=== PATIENT | female | born 1970 | race Caucasian/White ===

== ENCOUNTER → 2019-07-14 | Outpatient (CLI) | payer BC ==
--- NOTE | 2019-07-14 15:41 | Diagnostic Imaging Report ---
INDICATION: Right-sided pain, worsening in severity. FINDINGS: There is an elevated colonic fecal load without evidence for rectal impaction or jovanni bowel obstruction. There are clips at the gallbladder fossa. There are no suspicious radiodense stones. IMPRESSION: At least [id number] cha-colonic constipation without impaction or resultant obstruction. Dictated by: Dictated on workstation # [id number]
== END ==
LOC: RAD FS 11:45
PROVIDERS: ATTEND Nurse Practitioner Family
DX: K59.00 Constipation, unspecified (principal)
CPT/HCPCS: 74018

== ENCOUNTER → 2019-11-27 | Outpatient (CLI) | payer BC ==
--- NOTE | 2019-11-27 19:04 | Diagnostic Imaging Report ---
INDICATION: Neck pain with radiation down the right arm. COMPARISON: None FINDINGS: Frontal, lateral, and open-mouth views of the cervical spine were obtained. Cervical spine is seen down to C7-T1 level on the lateral view. Static alignment shows slight reversal of normal lordotic curvature epicentered at the C5 level. There is no significant anteroretrolisthesis. There is no evidence of jumped facets. Open-mouth view shows normal C1-C2 relationship. Vertebral body heights are maintained. There is no acute fracture. Prevertebral soft tissues are within normal limits. IMPRESSION: 1. Unremarkable cervical spine exam as above. Dictated by: Dictated on workstation # [id number]
== END ==
LOC: RAD FS 16:04
PROVIDERS: ATTEND Nurse Practitioner Family
DX: M79.2 Neuralgia and neuritis, unspecified (principal); M54.2 Cervicalgia
CPT/HCPCS: 72040

== ENCOUNTER 2020-01-08 05:45 | Outpatient (RCR) | payer BC ==
[~2020-01-08] VITALS: Ht 170 cm; Wt 77.2 kg
[2020-01-08] MEDS ORDERED: SUMA100T2 PO (13:07)
[2020-01-08] MEDS ORDERED: IRON1TAB89 PO (13:07)
[2020-01-08] MEDS ORDERED: LISI40TA PO (13:07)
[2020-01-08] MEDS ORDERED: DIPH25CA79 PO (13:07)
[2020-01-08] MEDS ORDERED: ROPI0.253 PO (13:07)
[2020-01-08] MEDS ORDERED: ALPR1TAB7 PO (13:07)
[2020-01-08] MEDS ORDERED: CETI10TA17 PO (13:07)
[2020-01-08] MEDS ORDERED: PANT40TA3 PO (13:07)
[2020-01-08] MEDS ORDERED: META800T PO (13:07)
[2020-01-08] MEDS ORDERED: GABA300C PO (13:07)
[2020-01-08] MEDS ORDERED: METO50TA15 PO (13:07)
[2020-01-13] MEDS ORDERED: DCS100C PO (05:55)
[2020-01-13] MEDS ORDERED: OXYC1TAB87 PO (05:55)
[2020-01-13] MEDS ORDERED: IBUP-1780 PO (05:55)
[2020-01-13] MEDS ORDERED: METR-145 PO (06:06)
== END 2020-01-08 13:23 | disposition home or self-care (01) ==
LOC: PREOP 05:45
PROVIDERS: ATTEND Obstetrics & Gynecology
DX: Z01.818 Encounter for other preprocedural examination (principal)

== ENCOUNTER 2020-01-11 06:57 | Inpatient (IN) | payer BC ==
[2020-01-11] VITALS (12 sets, daily range): BP systolic 110–146; BP diastolic 51–81
[~2020-01-11] VITALS: Ht 170 cm; Wt 77.2 kg
[~2020-01-11 06:57] MED LIST: ALPR1TAB7 PO; CETI10TA17 PO; DIPH25CA79 PO; GABA300C PO; IRON1TAB89 PO; LISI40TA PO; META800T PO; METO50TA15 PO; PANT40TA3 PO; ROPI0.253 PO; SUMA100T2 PO
--- OUTSIDE RECORDS SUMMARY | 2020-01-11 07:01 | XMS REPORT ---
Author Author Patricia ADHIKARI Organization [facility] Address [address] [place] [address] Care Team Providers Care Crm Technical Lead Name Role Phone GAGE ADHIKARI Unavailable PROBLEMS Type Condition ICD9-CM Code FAI03-KT Code Onset Dates Condition S tatus SNOMED Code Problem Primary hypertension I10 Active [id number] ALLERGIES No Information ENCOUNTERS Encounter Location Date Diagnosis [address] [address] Aug, [address] [address] Aug, Rash and nonspecific skin eruption R21 a nd Primary hypertension I10 IMMUNIZATIONS No Known Immunizations SOCIAL HISTORY Never Assessed REASON FOR VISIT medical history update PLAN OF CARE VITAL SIGNS MEDICATIONS Unknown Medications RESULTS No Results PROCEDURES No Known procedures INSTRUCTIONS MEDICATIONS ADMINISTERED No Known Medications MEDICAL (GENERAL) HISTORY Type Description Date Medical History allergic rhinitis due to other allergen Medical History abdominal pain, generalized Medical History reactive htn Medical History protein deficiency Medical History stress Medical History edema Medical History palpitation Medical History chronic fatigue Medical History pyelonephritis Medical History cystitis with hematuria Surgical History gallbladder Surgical History ganglion cyst removal Surgical History oral surgery Hospitalization History x2 Hospitalization History pneumonia Hospitalization History liver enzymes elevated
--- OUTSIDE RECORDS SUMMARY | 2020-01-11 07:01 | XMS REPORT ---
Author Author Patricia Mclaughlin Organization [facility] Address [address] [place] [address] Care Team Providers Care Chimney Construction Supervisor Name Role Phone GAGE Mclaughlin Unavailable PROBLEMS Type Condition ICD9-CM Code UAM72-TW Code Onset Dates Condition S tatus SNOMED Code Problem Palpitation R00.2 Apr, Active 62175 002 Problem Stress F43.9 Jun, Active 1827764 0 Problem Edema R60.9 Jun, Active 9273404 2 Problem Chronic fatigue R53.82 Apr, Active 5 3845966 Problem Abdominal pain, generalized R10.84 02 Feb, 2011 Active 253061552 Problem Well woman exam with routine gynecological exam Z01.419 Mar, Active 118875109391138 Problem Allergic rhinitis due to other allergen J30.89 Active 21834941 Problem Protein deficiency E46 Jun, Active 542415289 Problem Reactive hypertension I10 Apr, Activ e 94652312 Problem Anxiety F41.9 Active 72451200 Problem Cystitis with hematuria N30.91 May, Act elsie 57925457 Problem RLS (restless legs syndrome) G25.81 A ctive 66854473 Problem Pyelonephritis N12 May, Active 45 389368 Problem Primary hypertension I10 Active 85231357 Problem Essential hypertension I10 Active 71004413 Problem History of anemia Z86.2 Active 27 2762488 Problem Sinusitis, unspecified chronicity, unspecified location J32.9 Active 93445076 ALLERGIES No Information ENCOUNTERS Encounter Location Date Diagnosis [facility] [address] [place] [address] 02 Sep, [address] [id number] [place] [address] Aug, Anxiety F41.[address] [id number] [place] [address] Aug, Anxiety F41.9 [facility] [address] [id number] [place] [address] Jul, [facility] [address] [id number] [place] [address] Jul, Anxiety F41.9 [facility] [address] [id number] [place] [address] Jun, [facility] [address] [id number] [place] [address] Jun, [facility] [address] [id number] [place] [address] Jun, [facility] [address] [id number] [place] [address] Jun, Right sided abdominal pain R 10.9 [facility] [address] [id number] [place] [address] Jun, Acute recurrent pansinusitis J01.41 ; Right flank pain R10.9 ; Right sided abdominal pain R10.9 and RLS (restless legs syndrome) G25.81 [facility] [address] [id number] [place] [address] May, Anxiety F41.9 [facility] [address] [id number] [place] [address] Apr, Anxiety F41.9 [facility] [address] [id number] [place] [address] Mar, Anxiety F41.9 [facility] [address] [id number] [place] [address] Feb, Anxiety F41.9 [facility] [address] [id number] [place] [address] Jan, Anxiety F41.9 [facility] [address] [id number] [place] [address] Dec, Urinary frequency R35.0 [facility] [address] [id number] [place] [address] Dec, [facility] [address] [id number] [place] [address] Dec, Urinary frequency R35.0 [facility] [address] [id number] [place] [address] Dec, Essential hypertension I10 ; Sinusitis, unspecified chronicity, unspecified location J32.9 ; Anxiety F41.9 ; RLS (restless legs syndrome) G25.81 ; Medication monitoring encounter Z51.81 and Urinary frequency R35.0 [facility] [address] [id number] [place] [address] Dec, Anxiety F41.9 [facility] [address] [id number] [place] [address] Nov, [facility] [address] [id number] [place] [address] Nov, Anxiety F41.9 [facility] [address] [id number] [place] [address] October, Acute nasopharyngitis J00 [facility] [address] [id number] [place] [address] October, Essential hypertension I10 ; Muscle ache M79.10 ; Sinusitis, unspecified chronicity, unspecified location J32.9 ; History of migraine Z86.69 ; Anxiety F41.9 and History of anemia Z86.2 [facility] [address] [id number] [place] [address] October, Neck pain on right side M54. 2 [facility] [address] [id number] [place] [address] Sep, [facility] [address] [id number] [place] [address] Sep, [facility] [place] [facility] [address] [facility] [address] [id number] [place] [address] Aug, [facility] [place] [facility] [address] [facility] 340[address] [id number] [place] [address] Aug, Rash and nonspecific skin er uption R21 and Primary hypertension I10 [facility] [address] [facility] [id number] [address] [place] [address] Jun, [facility] [address] [facility] [id number] [address] [place] [address] May, [facility] [address] [facility] [id number] [address] [place] [address] May, IMMUNIZATIONS No Known Immunizations SOCIAL HISTORY Never Assessed REASON FOR VISIT DENIED XANAX PLAN OF CARE VITAL SIGNS MEDICATIONS Medication Instructions Dosage Frequency Start Date End Date Duration S tatus Alprazolam 1 MG Orally three times daily as needed 1/2 - 1 tablet 28 days Active RESULTS No Results PROCEDURES No Known procedures [...] Surgical History gallbladder Surgical History ganglion cyst removal, left wrist Surgical History oral surgery Hospitalization History x2 Hospitalization History pneumonia Hospitalization History liver enzymes elevated
--- OUTSIDE RECORDS SUMMARY | 2020-01-11 07:01 | XMS REPORT | Continuity of Care Document ---
Author Organization Unknown Address Unknown Phone Unavailable Allergies Active Description Code Type Severity Reaction Onset Reported/Identified Relationship to Patient Clinical Status Yes No Known Drug Allergies [id number] Drug Allergy Unknown N/A 01/08/2020 Medications There is no data. Problems Date Dx Coded Attending Type Code Diagnosis Diagnosed By 07/15/2019 SALOMON MEDEIROSANDA S PIPING DESIGN SPECIALIST Ot K59.00 CONSTIPATION, UNSPECIFIED 08/04/2019 WALDEMAR, SHAHLA S PIPING DESIGN SPECIALIST Ot K59.00 CONSTIPATION, UNSPECIFIED 11/27/2019 WALDEMAR, SHAHLA S PIPING DESIGN SPECIALIST Ot K59.00 CONSTIPATION, UNSPECIFIED 12/03/2019 WALDEMAR, SHAHLA S PIPING DESIGN SPECIALIST Ot M54.2 CERVICALGIA 12/03/2019 WALDEMAR, SHAHLA S PIPING DESIGN SPECIALIST Ot M79.2 NEURALGIA AND NEURITIS, UNSPECIFIED Procedures There is no data. Results Test Result Range - 09 PANEL (PROFILE 1) - 01/08/19 14 :25 Prescribed Drug 1 Alprazolam NRG Creatinine 58.2 mg/dL > or = 20.0 pH 5.98 4.5 - 9.0 Oxidant NEGATIVE mcg/mL <200 Amphetamines NEGATIVE ng/mL <500 medMATCH Amphetamines CONSISTENT NRG Benzodiazepines POSITIVE ng/mL <100 Marijuana Metabolite NEGATIVE ng/mL <20 medMATCH Marijuana Metab CONSISTENT NRG Cocaine Metabolite NEGATIVE ng/mL <150 medMATCH Cocaine Metab CONSISTENT NRG Opiates NEGATIVE ng/mL <100 medMATCH Opiates CONSISTENT NRG Oxycodone NEGATIVE ng/mL <100 medMATCH Oxycodone CONSISTENT NRG COMMENT NRG Alphahydroxyalprazolam 385 ng/mL <25 medMATCH aOH alprazolam CONSISTENT NRG Alphahydroxymidazolam NEGATIVE ng/mL < 50 medMATCH aOH midazolam CONSISTENT NRG Alphahydroxytriazolam NEGATIVE ng/mL < 50 medMATCH aOH triazolam CONSISTENT NRG Aminoclonazepam NEGATIVE ng/mL <25 medMATCH Aminoclonazepam CONSISTENT NRG Hydroxyethylflurazepam NEGATIVE ng/mL <50 medMATCH OH,Et flurazepam CONSISTENT NR G Lorazepam NEGATIVE ng/mL <50 medMATCH Lorazepam CONSISTENT NRG Nordiazepam NEGATIVE ng/mL <50 medMATCH Nordiazepam CONSISTENT NRG Oxazepam NEGATIVE ng/mL <50 medMATCH Oxazepam CONSISTENT NRG Temazepam NEGATIVE ng/mL <50 medMATCH Temazepam CONSISTENT NRG Barbiturates NEGATIVE ng/mL <300 medMATCH Barbiturates CONSISTENT NRG Methadone Metabolite NEGATIVE ng/mL <100 medMATCH Methadone Metab CONSISTENT NRG Phencyclidine NEGATIVE ng/mL <25 medMATCH Phencyclidine CONSISTENT NRG CULTURE, URINE - 01/12/19 16:25 CULTURE, URINE, ROUTINE SEE NOTE NRG CULTURE, URINE - 07/06/19 11:33 CULTURE, URINE, ROUTINE SEE NOTE NRG HEMOGLOBIN + HEMATOCRIT - 12/30/19 16:46 HEMOGLOBIN 9.5 g/dL 11.7-15.5 HEMATOCRIT 31.9 % 35.0-45.0 PATHOLOGY REPORT (TISSUE PAHOLOGY) - 02/10 16:54 A SOURCE NRG A GROSS DESCRIPTION NRG A DIAGNOSIS NRG CLINICAL INFORMATION NRG PATHOLOGIST NR SUREPATH PAP RFX HPV mRNA E6/E7 - 16:54 CLINICAL INFORMATION: NRG LMP: NRG PREV. PAP: NRG PREV. BX: NRG SOURCE: NRG STATEMENT OF ADEQUACY: NR INTERPRETATION/RESULT: NR FOURDRINIER TENDER: SHARON COMMENT NR CBC - 01/07/20 14:01 WHITE BLOOD CELL COUNT 12.8 Thousand/uL 3.8-10.8 RED BLOOD CELL COUNT 4.36 Million/uL 3.8 0-5.10 HEMOGLOBIN 9.5 g/dL 11.7-15.5 HEMATOCRIT 32.0 % 35.0-45.0 MCV 73.4 fL 80.0-100.0 MCH 21.8 pg 27.0-33.0 MCHC 29.7 g/dL 32.0-36.0 RDW 20.1 % 11.0-15.0 PLATELET COUNT 374 Thousand/uL 140-400 MPV 11.5 fL 7.5-12.5 ABSOLUTE NEUTROPHILS 8909 cells/uL 1500- 7800 ABSOLUTE LYMPHOCYTES 2560 cells/uL 850-3 900 ABSOLUTE MONOCYTES 1139 cells/uL 200-950 ABSOLUTE EOSINOPHILS 128 cells/uL 15-500 ABSOLUTE BASOPHILS 64 cells/uL 0-200 NEUTROPHILS 69.6 % NRG LYMPHOCYTES 20.0 % NRG MONOCYTES 8.9 % NRG EOSINOPHILS 1.0 % NRG BASOPHILS 0.5 % NRG Encounters ACCT No. Visit Date/Time Discharge Status Pt. Type Provider Facility Loc./Unit Complaint [id number] 01/06/2020 10:00:00 01/06/2020 23:59: 59 CLS Outpatient SHAHLA MEDEIROS [facility] [id number] 01/07/2020 13:00:00 Document Registration [id number] 12/30/2019 16:15:00 Document Registration [id number] 07/06/2019 10:20:00 Document Registration [id number] 01/12/2019 16:20:00 Document Registration [id number] 01/08/2019 13:20:00 Document Registration [id number] 01/08/2020 05:45:00 13:23:00 DIS Outpatient MANOLO RIVERA DO [facility] PREOP MENOMENORRHAGIA, ACUTE BLOOD LOSS ANEMIA [id number] 11/27/2019 16:04:00 23:59:59 CLS Outpatient SHAHLA MEDEIROS PIPING DESIGN SPECIALIST [facility] RAD FS RADICULAR PAIN IN ARM,C ERVICAL PAIN [id number] 07/14/2019 11:45:00 23:59:59 CLS Outpatient SHAHLA MEDEIROS PIPING DESIGN SPECIALIST [facility] RAD FS R10.9 [id number] 01/11/2020 09:15:00 P EN Preadmit MANOLO RIVERA DO [facility] SDC MENOMENORRHAGIA, ACUTE BLOOD LOSS ANEMIA
--- OUTSIDE RECORDS SUMMARY | 2020-01-11 07:01 | XMS REPORT ---
Author Author Patricia ADHIKARI Organization [facility] Address [address] [place] [address] Care Team Providers Care Hot Head Machine Operator Name Role Phone GAGE ADHIKARI Unavailable PROBLEMS Type Condition ICD9-CM Code RAE11-BE Code Onset Dates Condition S tatus SNOMED Code Problem Primary hypertension I10 Active 10884300 ALLERGIES No Known Allergies ENCOUNTERS Encounter Location Date Diagnosis [address] [address] Aug, [address] [address] Aug, Rash and nonspecific skin eruption R21 a nd Primary hypertension I10 IMMUNIZATIONS Vaccine Route Administration Date Status DEXAMETHASONE 4MG/ML (PER 1 MG) IM Intramuscular August 26, 2018 Administered DEPO MEDROL 40 MG/ML IM Intramuscular August 26, 2018 Administer ed SOCIAL HISTORY Never Assessed REASON FOR VISIT Rash, everywhere, started a few weeks ago, started getting worse last night, in pain, itching, redness,, lower right leg brownish/red spot & left knee yoltete VO PLAN OF CARE Activity Details Follow Up 3 Months Reason: VITAL SIGNS Height 68 in 2018-08-26 Weight 182 lbs 2018-08-26 Temperature 98.1 degrees Fahrenheit 2018-08-26 BMI 27.67 kg/m2 2018-08-26 Blood pressure systolic 164 mmHg 2018-08-26 Blood pressure diastolic 92 mmHg 2018-08-26 MEDICATIONS Medication Instructions Dosage Frequency Start Date End Date Duration S tatus Cetirizine HCl 10 MG Orally Once a day 1 tablet 24h 30 day(s) Active Zofran ODT Active Tramadol HCl 50 MG Orally every 6 hours as needed. take 1 tablet Active Aspirin 81 MG Orally Once a day 1 tablet 24h 30 day( s) Active Clonidine HCl 0.1 MG Orally three times daily as needed for bp 1 table t 30 day(s) Active Lexapro 10 MG Orally Once a day 1 tablet 24h 30 day( s) Active Gabapentin 300 MG Orally at HS 1 capsule 30 day( s) Active Metaxalone 800 MG Orally Three times a day 1 tablet 8h 30 day(s) Active Pantoprazole Sodium 40 MG Orally Once a day 1 tablet 24h 30 day(s) Active Alprazolam 1 MG Orally three times daily as needed 1/2 - 1 tablet Active Metoprolol Tartrate 50 MG Orally Twice a day 1 tablet with food 12h 30 day(s) Active Imitrex 100 MG Orally Twice a day 1 tablet as needed 12h Active DiphenhydrAMINE HCl 25 MG Orally every 6 hrs as needed 1 capsule as n eeded Active RESULTS No Results PROCEDURES Procedure Date Ordered Result Body Site DEXAMETHASONE 4MG/ML (PER 1 MG) August 26, 2018 THER/PROPH/DIAG INJ, SC/IM August 26, 2018 DEPO MEDROL 40 MG/ML August 26, 2018 INSTRUCTIONS MEDICATIONS ADMINISTERED No Known Medications MEDICAL [...]
[2020-01-11] MEDS: LACTATED RINGERS 1,000 ML IV PRN ×2 (07:18→12:34)
[2020-01-11] MEDS ORDERED: BUPIVACAINE 0.5% 30 ML (SENSORCAINE) VIAL ONE (07:30)
[2020-01-11] MEDS ORDERED: LIDOCAINE/EPI 2% 1:100,00 (XYLOCAINE) 20 ML VIAL ONE (07:30)
[2020-01-11] MEDS ORDERED: metroNIDAZOLE 500MG/100ML IVPB 100 ML IV ONE (07:30)
[2020-01-11] MEDS ORDERED: ceFAZolin 2 GM IV Premixed 50 ML IV ONE (07:30)
[2020-01-11] MEDS ORDERED: ESTROGENS CONJ. CREAM 30 GM (PREMARIN) TUBE ONE (07:30)
--- NOTE | 2020-01-11 07:31 | History & Physical-OB/GYN ---
History of Present Illness History of Present Illness Reason for visit/HPI Ms. Card is scheduled for surgery Laparoscopically-assisted Vaginal Hysterectomy possible Total Abdominal Hysterectomy secondary to heavy, prolonged, painful vaginal bleeding Date of Admission January 11, 2020 Date Seen by a Provider: Jan 11, 2020 Time Seen by a Provider: 07:20 I consulted on this patient on 01/11/20 07:25 Attending Physician Joe Bryant DO Admitting Physician Joe Bryant DO Consult Allergies and Home Medications Allergies Coded Allergies: No Known Drug Allergies (Unverified , 01/08/20) Home Medications Alprazolam 1 Mg Tablet, 1-1.5 MG PO TID, (Reported) Cetirizine HCl 10 Mg Tablet, 10 MG PO DAILY, (Reported) Diphenhydramine HCl 25 Mg Capsule, 25-50 MG PO PRN, (Reported) Gabapentin 300 Mg Capsule, 300 MG PO HS, (Reported) Iron,Carbonyl/Ascorbic Acid 1 Each Tablet, 1 EACH PO DAILY, (Reported) Lisinopril 40 Mg Tablet, 40 MG PO DAILY, (Reported) Metaxalone 800 Mg Tablet, 800 MG PO TID, (Reported) Metoprolol Tartrate 50 Mg Tablet, 50 MG PO BID, (Reported) Pantoprazole Sodium 40 Mg Tablet.dr, 40 MG PO DAILY, (Reported) Ropinirole HCl 0.25 Mg Tablet, 0.25 MG PO HS, (Reported) Sumatriptan Succinate 100 Mg Tablet, 100 MG PO PRN PRN for MIGRAINE, (Reported) Patient Home Medication List Home Medication List Reviewed: Yes Past Puhdpka-Sstwqi-Eacisi Hx Patient Social History Marrital Status: Number of Children: 2 Number of living children: 2 Employed/Student: employed Alcohol Use: Denies Use Recreational Drug Use: No Smoking Status: Never a Smoker 2nd Hand Smoke Exposure: No Recent Foreign Travel: No Contact w/other who traveled: No Recent Hopitalizations: No Seasonal Allergies Seasonal Allergies: Yes Surgeries Yes (GANGLION CYST, WISDOM TEETH) Gallbladder Respiratory Yes ( CHILD) Cardiovascular Yes Hypertension, Palpitations Neurological Yes Headaches /Migraines Reproductive System Sexually Transmitted Disease: No HIV/AIDS: No Female Reproductive Disorders: Menstrual Problems Genitourinary Yes UTI-Chronic Gastrointestinal Yes Gastroesophageal Reflux Musculoskeletal Yes Chronic Back Pain Endocrine History of Endocrine Disorders: No HEENT History of HEENT Disorders: Yes (GLASSES) Loss of Vision: Denies Hearing Impairment: Denies Cancer No Psychosocial History of Psychiatric Problem: Yes Behavioral Health Disorders: Anxiety Integumentary History of Skin or Integumenta: Yes (DRY SKIN) Blood Transfusions History of Blood Disorders: Yes (ANEMIA) Adverse Reaction to a Blood Tr: No (N/A) Review of Systems Constitutional: see HPI Physical Exam Physical Exam Vital Signs Capillary Refill : General Appearance: No Apparent Distress, WD/WN Respiratory: Chest Non Tender, Lungs Clear, Normal Breath Sounds Cardiovascular: Regular Rate, Rhythm, No Murmur Abdominal: normal bowel sounds, non tender, soft Labia: WNL Vagina: WNL Cervix: WNL Uterus: Enlarged Extremity: Normal Inspection, Non Tender, No Calf Tenderness Assessment/Plan Assessment and Plan Assessment: Chronic Blood Loss Anemia 2. Menometrorrhagia 3. Dysmenorrhea 4. Thickened Endometrium 5. Enlarged Uterus Plan: Ms. Card is scheduled for a Laparoscopically-assisted Vaginal Hysterectomy possible Total Abdominal Hysterectomy. The procedure and its associated risks were reviewed. All questions were answered. Admission Diagnosis Admission Status: Inpatient Order (span 2 midnights) Reason for Inpatient Admission: Scheduled surgery, Laparoscopically-assisted Vaginal Hysterectomy possible Total Abdominal Hysterecomy JOE BRYANT DO Jan 11, 2020 07:31
[2020-01-11 07:59] LABS: BASOPHILS % (AUTO) 0 % (0-10); EOSINOPHILS # (AUTO) 0.1 10^3/uL (0.0-0.3); EOSINOPHILS % (AUTO) 1 % (0-10); HEMATOCRIT 29 % (35-52); HEMOGLOBIN 8.7 G/DL (11.5-16.0); LYMPHOCYTES # (AUTO) 2.2 X 10^3 (1.0-4.0); LYMPHOCYTES % (AUTO) 25 % (12-44); MEAN CORPUSCULAR HEMOGLOBIN 23 PG (25-34); MEAN CORPUSCULAR HGB CONC 30 G/DL (32-36); MEAN CORPUSCULAR VOLUME 75 FL (80-99); MEAN PLATELET VOLUME 11.8 FL (7.4-10.4); MONOCYTES % (AUTO) 11 % (0-12); NEUTROPHILS # (AUTO) 5.3 X 10^3 (1.8-7.8); NEUTROPHILS % (AUTO) 62 % (42-75); PLATELET COUNT 302 10^3/uL (130-400); RED CELL DISTRIBUTION WIDTH 23.1 % (10.0-14.5); WHITE BLOOD COUNT 8.6 10^3/uL (4.3-11.0)
[2020-01-11] MEDS ORDERED: GLYCOPYRROLATE 0.2 MG/ML (ROBINUL) 2 ML VIAL ONE (08:59)
[2020-01-11] MEDS ORDERED: proPOfol 200 MG/20 ML (DIPRIVAN) VIAL IV ONE (08:59)
[2020-01-11] MEDS ORDERED: SEVOFLURANE (ULTANE) 15 ML INHAL SOLN ONE ×11 (08:59→11:53)
[2020-01-11] MEDS ORDERED: ONDANSETRON 4 MG/2 ML (SDV) Z0FRAN ONE ×2 (08:59→12:16)
[2020-01-11] MEDS ORDERED: DEXAMETHASONE 10 MG/ML (DECADRON) 1 ML VIAL ONE (08:59)
[2020-01-11] MEDS ORDERED: fentaNYL INJECTION 100 MCG/2 ML AMP ONE ×3 (08:59→13:45)
[2020-01-11] MEDS ORDERED: LACTATED RINGERS 1,000 ML IV ONE (08:59)
[2020-01-11] MEDS ORDERED: ROCURONIUM 10 MG/ML 5 ML SYRINGE IV ONE (08:59)
[2020-01-11] MEDS ORDERED: NEOSTIGMINE 3 MG/3 ML VIAL ONE (08:59)
[2020-01-11] MEDS ORDERED: MIDAZOLAM 2 MG/2 ML (VERSED) VIAL ONE (08:59)
[2020-01-11] MEDS ORDERED: LIDOCAINE PF 2% 5 ML (XYLOCAINE) VIAL ONE (08:59)
[2020-01-11] MEDS ORDERED: BENZOCAINE/MENTHOL (DERMOPLAST) 60 ML CAN TP PRN (11:45)
[2020-01-11] MEDS ORDERED: ONDANSETRON 4 MG/2 ML (SDV) Z0FRAN IVP PRN ×2 (11:45→12:15)
[2020-01-11] MEDS ORDERED: KETOROLAC 30 MG/ML VIAL IVP ONE (11:45)
[2020-01-11] MEDS ORDERED: KETOROLAC 30 MG/ML VIAL ONE (12:07)
--- NOTE | 2020-01-11 12:14 | Operative Report ---
Operative Report Date of Procedure/Surgery Jan 11, 2020 Surgeon (s) MANOLO RIVERA DO Sheet Metal Production Worker (s): None Post-Operative Diagnosis Acute Blood Loss Anemia 2. Menometrorrhagia 3. Dysmenorrhea 4. Thickened Endometrium 5. Enlarged Uterus 6. Bowel Injury Procedure Performed Supracervical Abdominal Hysterectomy 2. Bowel Injury Repair (Dr. Marquez) Description of Procedure Anesthesia Type: General Estimated blood loss (mL): 200 ml Specimen(s) collected/removed Uterus (no cervix) Packing: No packing Description of the Procedure Ms. Card was taken to the Operating Room with IV fluids running. Once in the OR general anesthesia was administered without difficulty. She was then placed in the dorsal lithotomy position, prepped and draped in the normal sterile fashion. A sponge stick was placed in the vagina as a way to manipulate the uterus. A Bates catheter was inserted and the bladder was drained. Gloves were changed and attention was turned to the abdomen. In the infraumbilical fold, in the midline, an area was injected with approximately 3 ml of local anesthesia. A stab incision with a scalpel was made. At this point a Verees needle was inserted through this same incision. The Normal Saline Hanging Drop test was negative. However, I could not get gas to flow through the Verees needle. Consequently, then Verees needle was irrigated and there was fecal matter noted along with the fluid. At this point, General Surgery (Dr. Marquez) was consulted intraoperatively (you can see Dr. Marquez's postoperative note--however, he made a vertical incision, once in the abdominal cavity he ran the entire bowel, located the rent and repaired it in a two-layer closure). Once the bowel was repaired, I started the hysterectomy. The bowel was packed away with moist laparotomy sponges. An O'Lino-O'Li was placed in the the uterus was grasped with a matt clamp. The round ligament was doubly clamped and cut. Suture ligatures of 0-Vicryl was placed. The bladder flap was pushed caudally once the contralateral round ligament was clamped and cut. The ovarian ligament and portion of the fallopian tubes bilaterally was clamped, cut and suture ligated bilaterally. The broad ligament was serially clamped, cut and suture ligated with 0-Vicryl. Once I was down to the neck of the cervix, the uterus was amputated--with removal of the uterus and leaving a small cervical stump. This was done secondary to poor visualization in the deep recesses of the pelvic cavity. The cervix stump was oversewn with 0-Vicryl in a running locked manner. Hemostasis was noted throughout the pelvic cavity. Copious amounts of irrigation was undertaken (3000 ml). All instruments and sponges were removed from the pelvic and abdominal cavities. The parietal peritoneum was closed with a 3-0 Vicryl. The fascia was closed with 0-Vicryl in a running fashion. The subcutaneous tissues were approximated with 3-0 Plain Gut. The skin was closed with 4-0 Monocryl in a running subcuticular manner. Sponge, instrument, and needle counts were correct x 3. Ms. Card was taken to the Recovery Room in good and stable condition where postoperative orders were written. Findings of the Procedure Dense adhesion of the bowel at umbilicus. An enlarged uterus. Normal appearing tubes and ovaries. Allergies and Home Medications Allergies Coded Allergies: No Known Drug Allergies (Unverified , 01/11/20) Home Medications Alprazolam 1 Mg Tablet, 1-1.5 MG PO TID, (Reported) Cetirizine HCl 10 Mg Tablet, 10 MG PO DAILY, (Reported) Diphenhydramine HCl 25 Mg Capsule, 25-50 MG PO PRN, (Reported) Gabapentin 300 Mg Capsule, 300 MG PO HS, (Reported) Iron,Carbonyl/Ascorbic Acid 1 Each Tablet, 1 EACH PO DAILY, (Reported) Lisinopril 40 Mg Tablet, 40 MG PO DAILY, (Reported) Metaxalone 800 Mg Tablet, 800 MG PO TID, (Reported) Metoprolol Tartrate 50 Mg Tablet, 50 MG PO BID, (Reported) Pantoprazole Sodium 40 Mg Tablet.dr, 40 MG PO DAILY, (Reported) Ropinirole HCl 0.25 Mg Tablet, 0.25 MG PO HS, (Reported) Sumatriptan Succinate 100 Mg Tablet, 100 MG PO PRN PRN for MIGRAINE, (Reported) Patient Home Medication List Home Medication List Reviewed: Yes MANOLO RIVERA DO Jan 11, 2020 12:14
[2020-01-11] MEDS ORDERED: HYDROmorphone 2 MG/ML VIAL (DILAUDID) IV ONE (12:15)
[2020-01-11] MEDS ORDERED: HYDROmorphone 2 MG/ML VIAL (DILAUDID) ONE (12:16)
[2020-01-11] MEDS: fentaNYL INJECTION 100 MCG/2 ML AMP IVP PRN ×3 (13:55→22:01)
[2020-01-11] MEDS ORDERED: LORazepam INJ 2 MG/ML (ATIVAN) VIAL IVP ONE (14:30)
[2020-01-11] MEDS: ONDANSETRON 4 MG (ZOFRAN) ORAL DISSOLVE TAB PO SCH ×2 (15:18→23:15)
[2020-01-11] MEDS: metroNIDAZOLE 500MG/100ML IVPB 100 ML IV SCH (15:27)
[2020-01-11] MEDS: METOCLOPRAMIDE 10 MG (REGLAN) TAB PO SCH ×2 (17:54→23:14)
[2020-01-11] MEDS: oxyCODONE/APAP 5/325MG (PERCOCET 5) TABLET PO SCH ×2 (17:55→22:46)
[2020-01-11] MEDS: LACTATED RINGERS 1,000 ML IV SCH (20:43)
[2020-01-11] MEDS ORDERED: rOPINIRole 0.25 MG (REQUIP) TAB PO PRN (21:00)
[2020-01-11] MEDS: IBUPROFEN 800 MG (MOTRIN) TAB PO SCH (21:59)
[2020-01-11] MEDS: ZOLPIDEM 5 MG (AMBIEN) TAB PO SCH (22:34)
--- NOTE | 2020-01-11 22:35 | NUR ---
PT TAKES XANAX AT HOME, ASK FOR XANAX AT THIS TIME, CALLED, NEW ORDER RECEIVED, SEE ORDER HISTORY Addendum: 01/12/20 at 0528 by JULIO GODINEZ RN PT TAKES XANAX AT HOME, ASK FOR XANAX AT THIS TIME, CALLED, THIS NURSE NOTIFIED HIM OF PT HOME XANAX DOSE. SAID TO HOLD HS DOSE OF AMBIEN. NEW ORDER RECEIVED FOR XANAX, SEE ORDER HISTORY.
[2020-01-11] MEDS ORDERED: ALPRAZolam 1 MG (XANAX) TAB PO PRN (22:45)
--- NOTE | 2020-01-11 23:00 | NUR ---
Assumed care of pt. Pt's in going home for the night. Pt has a lot of anxiety about being here by herself. Reassured her that we will take care of her. Meds and assessments done. Pt is calming down.
[2020-01-11] MEDS ORDERED: ALPRAZolam 0.5 MG (XANAX) TAB ONE (23:08)
[2020-01-12] VITALS (7 sets, daily range): BP systolic 121–152; BP diastolic 59–79
--- NOTE | 2020-01-12 02:44 | OPERATIVE REPORT ---
DATE OF SERVICE: 01/11/2020 Intraoperative consult requested by Dr. Bryant. INDICATIONS: The patient is a 49-year-old female undergoing a supracervical abdominal hysterectomy due to acute blood loss anemia, menometrorrhagia, dysmenorrhea, thickened endometrium and enlarged uterus. DESCRIPTION OF PROCEDURE: The patient was having laparoscopic procedure when the Veress needle was inserted through a stab incision, could not get gas flow through the Veress needle. It was irrigated and fecal matter returned. At this time, he asked that I come to further evaluate. A midline incision was made from the umbilical incision inferiorly down to the subcutaneous tissues and the abdomen was entered. Significant adhesion was extremely dense and the omentum that was significantly adherent to the umbilicus and it had to be bluntly and sharply taken down with Metzenbaum along with cautery. The transverse colon was in extreme close proximity to this area as well due to the adhesions of the omentum up to the umbilicus. Once this was freed, the incision to get better visualization was made in a more cephalad manner. The small bowel was ran all the way from the ligament of Treitz all the way to the ileocecal valve. This was ran twice not noting any small bowel injury. The colon was then ran from the cecum all the way up to the hepatic flexure along the transverse colon inferiorly down the descending colon and sigmoid evaluated. There were no initial bowel injury found. There was an adhesion up to the right upper quadrant, it was taken down with cautery as well and the colon was then mobilized. Again, the omentum was dissected off of the transverse colon and a small bowel injury was noted in the transverse colon. A 3-0 silk pop-off was then used to close the hole which did not have any significant gross contamination around it. This was closed in a double layer fashion and with the second tie, a piece of omentum was placed over it to also seal it. No other injury was identified on the small bowel or colon. At this time, the case was turned back over to Dr. Bryant for proceeding of his planned surgery. PROCEDURE: Exploratory laparotomy with repair of the transverse colon bowel injury. SURGEON: Deanna Marquez DO CRIME SCENE INVESTIGATOR: Joe Bryant DO ESTIMATED BLOOD LOSS: Minimal. COMPLICATIONS: None. Job ID: [id number] DocumentID: [id number] Dictated Date: 01/11/2020 17:58:30 Administrative Specialist Date: 01/12/2020 02:44:14 Dictated By: DEANNA MARQUEZ DO
--- NOTE | 2020-01-12 03:02 | NUR ---
Pt is sleeping soundly at this time. Did not wake for pain meds
[2020-01-12] MEDS: metroNIDAZOLE 500MG/100ML IVPB 100 ML IV SCH ×3 (03:16→12:35)
[2020-01-12] MEDS: oxyCODONE/APAP 5/325MG (PERCOCET 5) TABLET PO SCH ×8 (03:23→23:54)
[2020-01-12] MEDS: LACTATED RINGERS 1,000 ML IV SCH ×2 (04:00→04:29)
[2020-01-12] MEDS: fentaNYL INJECTION 100 MCG/2 ML AMP IVP PRN ×3 (04:35→09:34)
[2020-01-12] MEDS ORDERED: BISACODYL 10 MG SUPP (DULCOLAX) PR ONE (05:00)
[2020-01-12] MEDS ORDERED: MILK OF MAGNESIA 400 MG/5 ML 30 ML UDC PO ONE (05:00)
--- NOTE | 2020-01-12 05:30 | NUR ---
Bates removed, Suppository given. instructed pt to not get up to bathroom by herself. Dr nixon in room. Dressing removed per
[2020-01-12] MEDS: IBUPROFEN 800 MG (MOTRIN) TAB PO SCH ×4 (05:46→22:49)
[2020-01-12] MEDS: METOCLOPRAMIDE 10 MG (REGLAN) TAB PO SCH ×3 (06:00→12:35)
[2020-01-12 06:16] LABS: BASOPHILS % (AUTO) 0 % (0-10); EOSINOPHILS % (AUTO) 0 % (0-10); HEMATOCRIT 27 % (35-52); LYMPHOCYTES # (AUTO) 1.3 X 10^3 (1.0-4.0); LYMPHOCYTES % (AUTO) 10 % (12-44); MEAN CORPUSCULAR HEMOGLOBIN 23 PG (25-34); MEAN CORPUSCULAR HGB CONC 30 G/DL (32-36); MEAN CORPUSCULAR VOLUME 75 FL (80-99); MEAN PLATELET VOLUME 11.2 FL (7.4-10.4); MONOCYTES # (AUTO) 0.9 X 10^3 (0.0-1.0); MONOCYTES % (AUTO) 7 % (0-12); NEUTROPHILS # (AUTO) 10.6 X 10^3 (1.8-7.8); NEUTROPHILS % (AUTO) 83 % (42-75); PLATELET COUNT 258 10^3/uL (130-400); RED CELL DISTRIBUTION WIDTH 24.1 % (10.0-14.5); WHITE BLOOD COUNT 12.8 10^3/uL (4.3-11.0)
--- NOTE | 2020-01-12 06:25 | Progress Note ---
Standard Progress Note Progress Notes/Assess & Plan Date Seen by a Provider: Jan 12, 2020 Time Seen by a Provider: 06:10 Progress/Assessment & Plan Subjective: Ms. Card is POD#1 from a Supracervical Abdominal Hysterectomy and Bowel Injury Repair. She admits to being sore, but no other complaints today. She does admit that her Bates Catheter is bothering her. Objective: Vital signs stable Heart: Regular rate and rhythm with +2 IVIS Lungs: Clear to auscultation bilaterally with good respiratory effort Abdomen: Decreased bowel sounds, moderately tender on palpation, incision is clean, dry and well approximated, no rebound or guarding Extremities: No cyanosis, clubbing or edema Neurological: Alert and oriented, cooperative, no apparent distress Assessment: Postoperative Day #1 Supracervical Hysterectomy and Bowel Repair Plan: Control pain with oral medications. Increase bowel function, then advance diet. Ambulate. Shower. Discontinue Bates Catheter and IV. MANOLO RIVERA DO Jan 12, 2020 06:25
--- NOTE | 2020-01-12 06:41 | Anesthesia-General Post-Op ---
General Patient Condition Mental Status/LOC: Same as Preop Cardiovascular: Satisfactory Nausea/Vomiting: Absent Respiratory: Satisfactory Pain: Controlled Complications: Absent Post Op Complications Complications None Follow Up Care/Instructions Patient Instructions None needed. Anesthesia/Patient Condition Patient Condition Patient is doing well, no complaints, stable vital signs, no apparent adverse anesthesia problems. No complications reported per nursing. OLIVIER TRIPATHI CRNA Jan 12, 2020 06:41
--- NOTE | 2020-01-12 07:37 | NUR ---
Report given to Jim TORRES
[2020-01-12] MEDS: ONDANSETRON 4 MG (ZOFRAN) ORAL DISSOLVE TAB PO SCH (07:57)
--- NOTE | 2020-01-12 09:44 | NUR ---
Notified Dr Bryant pt complaining of indigestion/nausea. Orders received. See AUG.
[2020-01-12] MEDS ORDERED: FAMOTIDINE 20MG/2ML IV (PEPCID) IVP NR (09:45)
[2020-01-12] MEDS ORDERED: PROCHLORPERAZINE 25 MG (COMPAZINE) SUPP PR NR (09:45)
--- NOTE | 2020-01-12 10:00 | NUR ---
pt refused compazine suppository.
--- OUTSIDE RECORDS SUMMARY | 2020-01-12 10:17 | XMS REPORT | Continuity of Care Document ---
Author Organization Unknown Address Unknown Phone Unavailable Allergies Active Description Code Type Severity Reaction Onset Reported/Identified Relationship to Patient Clinical Status Yes No Known Drug Allergies [id number] Drug Allergy Unknown N/A 01/11/2020 Medications There is no data. Problems Date Dx Coded Attending Type Code Diagnosis Diagnosed By 07/15/2019 SALOMON MEDEIROSANDA S COOK CHILI Ot K59.00 CONSTIPATION, UNSPECIFIED 08/04/2019 WALDEMAR, SHAHLA S COOK CHILI Ot K59.00 CONSTIPATION, UNSPECIFIED 11/27/2019 WALDEMAR, SHAHLA S COOK CHILI Ot K59.00 CONSTIPATION, UNSPECIFIED 12/03/2019 WALDEMAR, SHAHLA S COOK CHILI Ot M54.2 CERVICALGIA 12/03/2019 WALDEMAR, SHAHLA S COOK CHILI Ot M79.2 NEURALGIA AND NEURITIS, UNSPECIFIED Procedures [...] NRG STATEMENT OF ADEQUACY: NR INTERPRETATION/RESULT: NR PBX MECHANIC: SHARON COMMENT NR CBC - 01/07/20 14:01 [...] 1.0 % NRG BASOPHILS 0.5 % NRG Complete blood count (CBC) with automate d white blood cell (WBC) differential - 01/11/20 07:19 Blood leukocytes automated count (number/volume) 8.6 10*3/uL 4.3-11.0 Blood erythrocytes automated count (number/volume) 3.84 10*6/uL 4.35-5.85 Venous blood hemoglobin measurement (mass/volume) 8.7 g/dL 11.5-16.0 Blood hematocrit (volume fraction) 29 % 35-52 Automated erythrocyte mean corpuscular volume 75 [ foz_us] 80-99 Automated erythrocyte mean corpuscular h emoglobin (mass per erythrocyte) 23 pg 25-34 Automated erythrocyte mean corpuscular h emoglobin concentration measurement (mass/volume) 30 g/dL 32-36 Automated erythrocyte distribution width ratio 23. 1 % 10.0- 14.5 Automated blood platelet count (count/volume) 302 10*3/uL 130-400 Automated blood platelet mean volume measurement 11.8 [foz_us] 7.4-10.4 Automated blood neutrophils/100 leukocytes 62 % 42-75 Automated blood lymphocytes/100 leukocytes 25 % 12-44 Blood monocytes/100 leukocytes 11 % 0-12 Automated blood eosinophils/100 leukocytes 1 % 0-10 Automated blood basophils/100 leukocytes 0 % 0-10 Blood neutrophils automated count (number/volume) 5.3 10*3 1.8-7.8 Blood lymphocytes automated count (number/volume) 2.2 10*3 1.0-4.0 Blood monocytes automated count (number/volume) 1. 0 10*3 0.0-1.0 Automated eosinophil count 0.1 10*3/uL 0 .0-0.3 Automated blood basophil count (count/volume) 0.0 10*3/uL 0.0-0.1 Blood type T Indirect antibody screen pa humberto - 01/11/20 07:19 WRISTBAND NUMBER [id number] NRG ABO+Rh group AP NRG Blood group antibody screen NEGATIVE NR G Encounters ACCT No. Visit Date/Time Discharge Status Pt. Type Provider Facility Loc./Unit Complaint [id number] 01/06/2020 10:00:00 01/06/2020 23:59: 59 CLS Outpatient SHAHLA MEDEIROS [facility] [id number] 01/07/2020 13:00:00 Document Registration [id number] 12/30/2019 16:15:00 Document Registration [id number] 07/06/2019 10:20:00 Document Registration [id number] 01/12/2019 16:20:00 Document Registration [id number] 01/08/2019 13:20:00 Document Registration [id number] 01/08/2020 05:45:00 13:23:00 DIS Outpatient MANOLO RIVERA DO [facility] PREOP MENOMENORRHAGIA, ACUTE BLOOD LOSS ANEMIA [id number] 11/27/2019 16:04:00 23:59:59 CLS Outpatient SHAHLA MEDEIROS COOK CHILI [facility] RAD FS RADICULAR PAIN IN ARM, CERVICAL PAIN [id number] 07/14/2019 11:45:00 23:59:59 CLS Outpatient SHAHLA MEDEIROS COOK CHILI [facility] RAD FS R10.9 [id number] 01/11/2020 06:57:[address] Outpatient MANOLO RIVERA DO [facility] LDRP MENOMENORRHAGIA, ACUTE BLOOD LOSS ANEMIA
--- NOTE | 2020-01-12 10:30 | NUR ---
Pt had BM with out difficulty.
--- NOTE | 2020-01-12 10:45 | NUR ---
Pt resting no c/o or concerns voiced at this time.
[2020-01-12] MEDS: DOCUSATE SODIUM 100 MG (COLACE) CAP PO SCH ×2 (12:58→20:03)
--- NOTE | 2020-01-12 15:16 | NUR ---
Pt ambulating in [place] with without difficulty.
--- NOTE | 2020-01-12 16:00 | NUR ---
pt sitting up in chair.
[2020-01-12] MEDS: metroNIDAZOLE 500 MG (FLAGYL) TAB PO SCH (20:03)
[2020-01-12] MEDS: ZOLPIDEM 5 MG (AMBIEN) TAB PO SCH (21:26)
[2020-01-13] MEDS: IBUPROFEN 800 MG (MOTRIN) TAB PO SCH ×2 (01:22→08:21)
[2020-01-13] MEDS: oxyCODONE/APAP 5/325MG (PERCOCET 5) TABLET PO SCH ×2 (02:17→08:22)
[2020-01-13 03:47] VITALS: BP 145/65
[2020-01-13] MEDS ORDERED: IBUP-1780 PO (05:55)
[2020-01-13] MEDS ORDERED: DCS100C PO (05:55)
[2020-01-13] MEDS ORDERED: OXYC1TAB87 PO (05:55)
--- NOTE | 2020-01-13 06:04 | Discharge Summary ---
Diagnosis/Chief Complaint Date of Admission Jan 11, 2020 at 06:58 Date of Discharge January 13, 2020 Discharge Date: Jan 13, 2020 Discharge Time: 08:00 Admission Diagnosis Admission Diagnosis Chronic Blood Loss Anemia 2. Menometrorrhagia 3. Dysmenorrhea 4. Thickened Endometrium 5. Enlarged Uterus Discharge Diagnosis Chronic Blood Loss Anemia 2. Menometrorrhagia 3. Dysmenorrhea 4. Thickened Endometrium 5. Enlarged Uterus 6. Bowel Injury Reason Hospital Visit Ms. Card is scheduled for surgery Laparoscopically-assisted Vaginal Hysterectomy possible Total Abdominal Hysterectomy secondary to heavy, prolonged, painful vaginal bleeding Discharge Summary Hospital Course Was the Problem List Reviewed?: Yes Hospital Course Ms. Card is scheduled for surgery Laparoscopically-assisted Vaginal Hysterectomy possible Total Abdominal Hysterectomy secondary to heavy, prolonged, painful vaginal bleeding, Ms. Card was taken to the surgery and upon placing the Verees needle, I encountered problems. I removed the Verees n eedle, irrigated and noted fecal matter. At this point, General Surgery (Dr. Marquez) was consulted. The surgery was converted to an open case. Dr. Marquez located and repaired the bowel injury. I performed a supra-cervical hysterectomy. Postoperatively, she was was started on IV and oral pain medications along with other comfort care measures. Postoperative Day #1, Ms. Card was given medication to increase her bowel function, her Bates catheter was removed, she was encouraged to ambulate and she was started on oral pain medication. Postoperative Day #2 found Ms. Card ambulating, moving her bowels, voiding freely, ambulating, and tolerating a Regular Diet. Her vital signs remained stable throughout her hospitalization. The remainder of her hospitalization was unremarkable. She will be discharge to home with instructions, prescriptions, and a follow up appointment. Labs Laboratory Tests 01/11/20 07:19: Red Blood Count 3.84L, Hemoglobin 8.7L, Hematocrit 29L, Mean Corpuscular Volume 75L, Mean Corpuscular Hemoglobin 23L, Mean Corpuscular Hemoglobin Concent 30L, Red Cell Distribution Width 23.1H, Mean Platelet Volume 11.8H 01/11/20 09:27: 01/12/20 05:43: Red Blood Count 3.53L, Hemoglobin 8.0L, Hematocrit 27L, Mean Corpuscular Volume 75L, Mean Corpuscular Hemoglobin 23L, Mean Corpuscular Hemoglobin Concent 30L, Red Cell Distribution Width 24.1H, Mean Platelet Volume 11.2H, White Blood Count 12.8H, Neutrophils (%) (Auto) 83H, Lymphocytes (%) (Auto) 10L, Neutrophils # (Auto) 10.6H Procedures Supra-cervical abdominal hysterectomy and bowel injury repair Consultations General Surgery (Dr. Marquez) Discharge Physical Examination Allergies: Coded Allergies: No Known Drug Allergies (Unverified , 01/11/20) Vitals & I&Os Vital Signs Date Time Temp Pulse Resp B/P (MAP) Pulse Ox O2 Delivery O2 Flow Rate FiO2 01/13/20 03:47 36.6 102 16 145/65 (91) 92 Room Air 01/11/20 15:25 4.00 General Appearance: Alert, Oriented X3, Cooperative HEENT: Atraumatic Respiratory: Clear to Auscultation, Normal Air Movement Cardiovascular: Regular Rate Abdominal: Normal Bowel Sounds, Soft Extremities: No Clubbing, No Cyanosis Skin: No Rashes Neuro: Normal Gait, Normal Speech Psych/Mental Status: Mental Status NL Discharge Home Medications Reviewed and agree with Discharge Medication list on patient's Discharge Instruction sheet Instructions to Patient/Family Please see electronic discharge instructions given to patient. MANOLO RIVERA DO Jan 13, 2020 06:04
[2020-01-13] MEDS ORDERED: METR-145 PO (06:06)
[2020-01-13] MEDS: metroNIDAZOLE 500 MG (FLAGYL) TAB PO SCH (08:21)
[2020-01-13] MEDS: DOCUSATE SODIUM 100 MG (COLACE) CAP PO SCH (08:21)
[2020-01-13 09:30] VITALS: BP 140/67
--- NOTE | 2020-01-13 09:45 | NUR ---
JERRY FELIX demonstrates understanding of discharge instructions and accurately returns instructions upon questioning. Copy of Post-Discharge Instructions and Medication Discharge Instructions given to patient. JERRY FELIX is able to manage continuing needs after discharge. Patients belongings returned to patient. Skin dry and intact; no breakdown noted. [facility] 01[facility]13[facility]20 at 0945. JERRY FELIX left floor via w/c, accompanied by staff.
--- NOTE | 2020-01-15 10:50 | Physician Query Clarification ---
PQ-Conflicting Diagnosis Admission/Discharge Admission Date: Jan 11, 2020 at 06:58 Discharge Date: Jan 13, 2020 at 09:45 Dr. Bryant, The medical record reflects the following clinical scenario: History/Risk Factors: [list no more than 2] Clinical Findings: [list no more than 2] Treatment: [list no more than 2] Question: Do you agree with the impression of the [diagnosis/condition] per [consulting physician]. Please document a response in Progress Note or Discharge Summary. 1. Yes 2. No 3. Other, with explanation of clinical findings 4. Clinically undetermined, no explanation for clinical findings. Please remember a lack of response to the above will prompt a phone page by CDI/Coding staff. In responding to this query, please exercise your independent professional judgment. The purpose of this communication is to more accurately reflect the complexity of your patients condition. The fact that a question is asked does not imply that any particular answer is desired or expected. Thank you for your timely response to this clarification. Requestors name: [ ] Phone # [ ] THIS PHYSICIAN QUERY FORM IS A PERMANENT PART OF THE MEDICAL RECORD WILL BARROSO Jan 15, 2020 10:50
== END 2020-01-13 09:45 | disposition home or self-care (01) | DRG 983 ==
LOC: SDC 06:57 → LDRP 06:58
PROVIDERS: ADMIT Obstetrics & Gynecology; ATTEND Obstetrics & Gynecology
PROC: 0UT90ZL Resection of Uterus, Supracervical, Open Approach (ICD-10-PCS; 2020-01-11)
PROC: 0DQL0ZZ Repair Transverse Colon, Open Approach (ICD-10-PCS; principal; 2020-01-11 09:39)
DX: K91.71 Accidental puncture and laceration of a digestive system organ or structure during a digestive system procedure (principal); N92.1 Excessive and frequent menstruation with irregular cycle; N94.6 Dysmenorrhea, unspecified; N85.2 Hypertrophy of uterus; K66.0 Peritoneal adhesions (postprocedural) (postinfection); I10 Essential (primary) hypertension; K21.9 Gastro-esophageal reflux disease without esophagitis; R00.2 Palpitations; M54.9 Dorsalgia, unspecified; D50.0 Iron deficiency anemia secondary to blood loss (chronic)
CPT/HCPCS: 36415; 84703; 85025; 86850; 86900; 86901; 87081; 87635; 88307; 94664

== ENCOUNTER → 2020-09-06 | Outpatient (CLI) | payer BC ==
[~2020-09-06] MED LIST changes: +DCS100C PO; +IBUP-1780 PO; -LISI40TA PO; +LISI40TA9 PO; +METR-145 PO; +OXYC1TAB87 PO; -PANT40TA3 PO; +PANT40TA52 PO
--- NOTE | 2020-09-06 14:04 | Diagnostic Imaging Report ---
INDICATION: Acute right shoulder pain. COMPARISON: None available. TECHNIQUE: Two radiographs of the right shoulder dated 09/06/2020. FINDINGS: The acromioclavicular joint is unremarkable. No acute fracture or dislocation. No destructive osseous process. The visualized right lung is clear. No suspicious radiopaque foreign body. IMPRESSION: Unremarkable examination without acute osseous abnormality. Dictated by: Dictated on workstation # [id number]
== END ==
LOC: RAD FS 12:44
PROVIDERS: ATTEND Nurse Practitioner Family
DX: M25.511 Pain in right shoulder (principal)
CPT/HCPCS: 73030

== ENCOUNTER 2021-03-20 17:05 | Emergency (ER) | payer BC ==
[~2021-03-20] VITALS: Ht 170 cm; Wt 79.0 kg
[~2021-03-20 17:05] MED LIST changes: -DCS100C PO; +DOCU-239 PO
--- OUTSIDE RECORDS SUMMARY | 2021-03-20 17:09 | XMS REPORT | Clinical Summary ---
Author Author [facility] Organization [facility] Address Unknown Phone Unavailable Care Team Providers Care Senior Windows Systems Engineer Name Role Phone Brittany Navarro APRN PCP Allergies No Known Active Allergies Medications End Date Status Medication Sig Dispensed Refills Start Date Active cetirizine (ZYRTEC) 10 MG Take 10 mg by 0 tablet mouth daily. Active metaxalone (SKELAXIN) 800 Take 800 mg 0 MG tablet by mouth 3 (three) times a day. Active SUMAtriptan (IMITREX) 100 Take 100 mg 0 MG tablet by mouth as needed for migraine. After 2 hours, if symptoms persist, may repeat dose x 1. Max 2 doses in 24 hrs. Active ALPRAZolam (XANAX) 1 MG TAKE 1 2 TO 1 0 tablet (ONE HALF TO 1 ONE) TABLET BY MOUTH THREE TIMES DAILY NEEDED Active metoprolol tartrate TAKE 1 TABLET 0 (LOPRESSOR) 50 MG tablet BY MOUTH 1 TWICE DAILY WITH FOOD Active SUMAtriptan (IMITREX) 100 TAKE 1 TABLET 0 09/2 0/201 MG tablet BY MOUTH ONCE 8 DAILY DIRECTED Active traMADoL (ULTRAM) 50 mg TAKE 1 TABLET 0 tablet BY MOUTH ONCE 1 DAILY NEEDED FOR 28 DAYS Active rOPINIRole (REQUIP) 0.25 TAKE 1 TABLET 0 09/26 MG tablet BY MOUTH 1 TO 1 3 HOURS BEFORE BEDTIME ONCE DAILY Active pantoprazole (PROTONIX) TAKE 1 TABLET 0 40 MG tablet BY MOUTH ONCE 1 DAILY FOR 90 DAYS Active ondansetron (ZOFRAN-ODT) Take 4 mg by 0 02/19 4 MG disintegrating mouth every 6 8 tablet (six) hours as needed. Active lisinopriL Take 40 mg by 0 (PRINIVIL,ZESTRIL) 40 MG mouth daily. 1 tablet Active gabapentin (NEURONTIN) Take 300 mg 0 01 300 MG capsule by mouth. 8 Active Problems Not on file Family History Medical History Relation Name Comments Heart attack Father Stroke Mother Relation Name Status Comments Father Mother Social History Date Tobacco Use Types Packs/Day Years Used Never Smoker Smokeless Tobacco: Never Used Tobacco Cessation: Counseling Given: No Comments Alcohol Use Standard Drinks/Week occasional Yes 0 (1 standard drink = 0.6 o z pure alcohol) Sex Assigned at Date Recorded Not on file Last Filed Vital Signs Reading Time Taken Comments Vital Sign 118/72 10/03/2020 3:08 PM CDT Blood Pressure 69 10/03/2020 3:08 PM CDT Pulse 36.8 C (98.2 F) 10/03/2020 3:08 PM CDT Temperature - - Respiratory Rate - - Oxygen Saturation - - Inhaled Oxygen Concentration 80.7 kg (178 lb) 10/03/2020 3:08 PM CDT Weight 170.2 cm (5' 7") 10/03/2020 3:08 PM CDT Height 27.88 10/03/2020 3:08 PM CDT Body Mass Index Plan of Treatment Health Maintenance Due Date Last Done Comments Td/Tdap# 1970 Influenza Vaccine (#1) 2021 COVID-19 Vaccine Completed 08/08/2020, 07/21/2020 Pneumococcal Vaccine: Aged Out No longer raul bo based on patient's age to Pediatrics (0 to 5 Years) complete this topic and At-Risk Patients (6 to 64 Years) Results Not on filefrom Last 3 Months Insurance Type Payer Benefit Subscriber ID Effective Phone Address Plan / Dates Group BLUE [employer]UE [facility] [id number] [id number] [facility] 1 Patricia Card Personal/F Self 1970 [address] (Home) [place], [place] [address] Patricia Card Personal/F Self 1970 [address] (Home) [place], [place] [address] Advance Directives For more information, please contact: [phone] Patient Biomedical Engineer Explanation Type Date Recorded Advance Directives and Living Will Power of Plate Conditioner Health Care Directive
--- NOTE | 2021-03-20 17:42 | ED General ---
General Chief Complaint: Dizziness/Syncope Stated Complaint: FATIGUE,DIZZY,LOW BP Nursing Triage Note: ARRIVED VIA AMB TO ROOM 05. COMPLIANS OF LOW BP TODAY CAUSING HER TO FEEL WEAK AND DIZZY. PT STATES SHE HAD RECENT LABS DRAWN AND IS SCHEDULED TO GO BACK FOR REPEATS. History of Present Illness Date Seen by Provider: Mar 20, 2021 Time Seen by Provider: 17:30 Initial Comments 50-year-old female presents with low blood pressure and feeling lightheaded today. Patient normally has high blood pressure and is on a few blood pressure medications, recently added hydrochlorothiazide and her blood pressure has been well controlled. She typically is never low. Denies recent illness, fever chills, vomiting or diarrhea. She has had normal appetite and fluid intake. Allergies and Home Medications Allergies Coded Allergies: No Known Drug Allergies (Unverified , 01/11/20) Patient Home Medication List Home Medication List Reviewed: Yes Alprazolam (Alprazolam) 1 Mg Tablet, 1-1.5 MG PO TID, (Reported) Entered as Reported by: LUCIA BASS on 01/08/20 1307 Cetirizine HCl (Cetirizine HCl) 10 Mg Tablet, 10 MG PO DAILY, (Reported) Entered as Reported by: LUCIA BASS on 01/08/20 1307 Diphenhydramine HCl (Benadryl) 25 Mg Capsule, 25-50 MG PO PRN, (Reported) Entered as Reported by: LUCIA BASS on 01/08/20 1307 Docusate Sodium (Dok) 100 Mg Capsule, 100 MG PO BID Prescribed by: MANOLO RIVERA on 01/13/20 0555 Gabapentin (Neurontin) 300 Mg Capsule, 300 MG PO HS, (Reported) Entered as Reported by: LUCIA BASS on 01/08/20 1307 Ibuprofen (Ibuprofen) 800 Mg Tablet, 800 MG PO Q8HR Prescribed by: MANOLO RIVERA on 01/13/20 0555 Iron,Carbonyl/Ascorbic Acid (Iron 100-Vitamin C Tablet) 1 Each Tablet, 1 EACH PO DAILY, (Reported) Entered as Reported by: LUCIA BASS on 01/08/20 1307 Lisinopril (Lisinopril) 40 Mg Tablet, 40 MG PO DAILY, (Reported) Entered as Reported by: LUCIA BASS on 01/08/20 1307 Metaxalone (Metaxalone) 800 Mg Tablet, 800 MG PO TID, (Reported) Entered as Reported by: LUCIA BASS on 01/08/20 1307 Metoprolol Tartrate (Metoprolol Tartrate) 50 Mg Tablet, 50 MG PO BID, (Reported) Entered as Reported by: LUCIA BASS on 01/08/20 1307 Metronidazole (Metronidazole) 500 Mg Tablet, 500 MG PO TID Prescribed by: MANOLO RIVERA on 01/13/20 0606 Oxycodone HCl/Acetaminophen (Percocet 5-325 mg Tablet) 1 Each Tablet, 1 TAB PO Q4H Prescribed by: MANOLO RIVERA on 01/13/20 0555 Pantoprazole Sodium (Pantoprazole Sodium) 40 Mg Tablet.dr, 40 MG PO DAILY, (Reported) Entered as Reported by: LUCIA BASS on 01/08/20 1307 Ropinirole HCl (Ropinirole HCl) 0.25 Mg Tablet, 0.25 MG PO HS, (Reported) Entered as Reported by: LUCIA BASS on 01/08/20 130 Sumatriptan Succinate (Imitrex) 100 Mg Tablet, 100 MG PO PRN PRN for MIGRAINE, (Reported) Entered as Reported by: LUCIA BASS on 01/08/20 130 Review of Systems Review of Systems Constitutional: dizziness; No fever; malaise EENTM: no symptoms reported Respiratory: No dyspnea on exertion, No short of breath Cardiovascular: No chest pain, No edema, No palpitations, No syncope Gastrointestinal: No abdominal pain, No loss of appetite, No nausea, No vomiting Musculoskeletal: No back pain, No joint pain Skin: No change in color, No rash Psychiatric/Neurological: Denies Headache, Denies Numbness, Denies Paresthesia; Weakness Past Aztdmox-Pfqtwa-Euzvvu Hx Patient Social History Tobacco Use?: No Substance use?: No Alcohol Frequency: Once in a while Immunizations Up To Date Second COVID19 Vaccination Lukas: 08/14 COVID19 Vaccine Land[employer] Technician: ELIUD Seasonal Allergies Seasonal Allergies: Yes Past Medical History Surgeries: Yes (GANGLION CYST, WISDOM TEETH) Gallbladder Respiratory: Yes ( CHILD) Asthma Currently Using CPAP: No Currently Using BIPAP: No Cardiac: Yes Hypertension, Palpitations Neurological: Yes Headaches /Migraines Female Reproductive Disorders: Menstrual Problems Sexually Transmitted Disease: No HIV/AIDS: No Genitourinary: Yes UTI-Chronic Gastrointestinal: Yes Gastroesophageal Reflux Musculoskeletal: Yes Chronic Back Pain Endocrine: No HEENT: Yes (GLASSES) Loss of Vision: Denies Hearing Impairment: Denies Cancer: No Psychosocial: Yes Anxiety Integumentary: Yes (DRY SKIN) Blood Disorders: Yes (ANEMIA) Adverse Reaction/Blood Tranf: No (N/A) Physical Exam Vital Signs Vital Signs - First Documented 03/20/21 17:10 Temp 37.3 Pulse 62 Resp 16 B/P (MAP) 121/50 (73) Pulse Ox 100 O2 Delivery Room Air Capillary Refill : Less Than 3 Seconds Height, Weight, BMI Height: '" Weight: lbs. oz. kg; 27.00 BMI Method: General Appearance: No Apparent Distress, WD/WN HEENT: PERRL/EOMI, Normal ENT Inspection Neck: Non Tender, Supple Respiratory: Chest Non Tender, Lungs Clear, Normal Breath Sounds, No Accessory Muscle Use, No Respiratory Distress Cardiovascular: Regular Rate, Rhythm, No Edema, No Gallop, No JVD, No Murmur, Normal Peripheral Pulses Gastrointestinal: Non Tender, Soft Back: Normal Inspection, No CVA Tenderness Extremity: Normal Capillary Refill, Non Tender Neurologic/Psychiatric: Alert, Oriented x3, No Motor/Sensory Deficits, Normal Mood/Affect Skin: Normal Color, Warm/Dry Progress/Results/Core Measures Suspected Sepsis SIRS Temperature: Pulse: 62 Respiratory Rate: 16 Laboratory Tests 03/20/21 17:40: White Blood Count 9.8 Blood Pressure 121 /50 Mean: 73 Laboratory Tests 03/20/21 17:40: Creatinine 2.06H, Platelet Count 281, Total Bilirubin 0.3 Results/Orders Lab Results Laboratory Tests Test 03/20/21 17:40 03/20/21 18:15 Range/Units White Blood Count 9.8 4.3-11.0 10^3/uL Red Blood Count 4.72 3.80-5.11 10^6/uL Hemoglobin 12.8 11.5-16.0 g/dL Hematocrit 39 35-52 % Mean Corpuscular Volume 84 80-99 fL Mean Corpuscular Hemoglobin 27 25-34 pg Mean Corpuscular Hemoglobin Concent 33 32-36 g/dL Red Cell Distribution Width 15.1 H 10.0-14.5 % Platelet Count 281 130-400 10^3/uL Mean Platelet Volume 10.7 9.0-12.2 fL Immature Granulocyte % (Auto) 0 % Neutrophils (%) (Auto) 62 42-75 % Lymphocytes (%) (Auto) 28 12-44 % Monocytes (%) (Auto) 9 0-12 % Eosinophils (%) (Auto) 1 0-10 % Basophils (%) (Auto) 0 0-10 % Neutrophils # (Auto) 6.1 1.8-7.8 X 10^3 Lymphocytes # (Auto) 2.8 1.0-4.0 X 10^3 Monocytes # (Auto) 0.8 0.0-1.0 X 10^3 Eosinophils # (Auto) 0.1 0.0-0.3 10^3/uL Basophils # (Auto) 0.0 0.0-0.1 10^3/uL Immature Granulocyte # (Auto) 0.0 0.0-0.1 10^3/uL Sodium Level 136 135-145 MMOL/L Potassium Level 4.9 3.6-5.0 MMOL/L Chloride Level 100 98-107 MMOL/L Carbon Dioxide Level 22 21-32 MMOL/L Anion Gap 14 5-14 MMOL/L Blood Urea Nitrogen 29 H 7-18 MG/DL Creatinine 2.06 H 0.60-1.30 MG/DL Estimat Glomerular Filtration Rate 26 BUN/Creatinine Ratio 14 Glucose Level 89 70-105 MG/DL Calcium Level 9.3 8.5-10.1 MG/DL Corrected Calcium 8.5-10.1 MG/DL Magnesium Level 2.0 1.6-2.4 MG/DL Total Bilirubin 0.3 0.1-1.0 MG/DL Aspartate Amino Transf (AST/SGOT) 32 5-34 U/L Alanine Aminotransferase (ALT/SGPT) 46 0-55 U/L Alkaline Phosphatase 119 40-136 U/L Total Protein 7.6 6.4-8.2 GM/DL Albumin 4.6 H 3.2-4.5 GM/DL Urine Color YELLOW Urine Clarity SL CLOUDY Urine pH 5.5 5-9 Urine Specific [place] 1.010 L 1.016-1.022 Urine Protein NEGATIVE NEGATIVE Urine Glucose (UA) NEGATIVE NEGATIVE Urine Ketones NEGATIVE NEGATIVE Urine Nitrite NEGATIVE NEGATIVE Urine Bilirubin NEGATIVE NEGATIVE Urine Urobilinogen 0.2 < = 1.0 MG/DL Urine Leukocyte Esterase 2+ H NEGATIVE Urine RBC (Auto) TRACE-I NEGATIVE Urine RBC 2-5 H /HPF Urine WBC 50-100 H /HPF Urine Squamous Epithelial Cells 25-50 H /HPF Urine Crystals NONE /LPF Urine Bacteria TRACE /HPF Urine Casts NONE /LPF Urine Mucus NEGATIVE /LPF Urine Culture Indicated YES My Orders Orders - ROVENSTINENELA DO Ed Iv/Invasive Line Start (03/20/21 17:37) Cbc With Automated Diff (03/20/21 17:37) Comprehensive Metabolic Panel (03/20/21 17:37) Urinalysis (03/20/21 17:37) Magnesium (03/20/21 17:37) Ns Iv 1000 Ml (Sodium Chloride 0.9%) (03/20/21 17:45) Urine Culture (03/20/21 18:15) Ns Iv 1000 Ml (Sodium Chloride 0.9%) (03/20/21 20:00) Vital Signs/I&O 03/20/21 03/20/21 17:10 22:20 Temp 37.3 Pulse 62 82 Resp 16 18 B/P (MAP) 121/50 (73) 131/62 Pulse Ox 100 99 O2 Delivery Room Air Room Air 03/21/21 00:00 Intake Total 400 ml Balance 400 ml Capillary Refill : Less Than 3 Seconds Blood Pressure Mean: 73 Progress Note : Progress Note Patient was able to log onto her lab portal through the clinic and shared her values with me from Saturday Creatinine = 1.38 patient started on Chlorthalidone approx 2 weeks ago for HTN (in addition to her Lisinopril and Metoprolol) No prior Hx of renal dysfunction BP improved p IVF- 120's systolic now Departure Impression Primary Impression: ARF (acute renal failure) Qualified Codes: N17.9 - Acute kidney failure, unspecified Additional Impressions: Dehydration Hypotension Qualified Codes: I95.89 - Other hypotension; E86.1 - Hypovolemia Disposition: 02 XFER SHT-TRM HOSP ([facility]) Condition: Stable Transfer Transfer Reason: Exceeds level of care Time Spoke to Accepting Phy: 19:19 Transfer Progress Notes spoke to Kameron Mercado who accepts for Dr Vasquez Departure-Patient Inst. Referrals: [facility] (PCP) Primary Care Physician SHAHLA MEDEIROS APRN (Family) Primary Care Physician NELA GOOD DO Mar 20, 2021 17:42
[2021-03-20] MEDS ORDERED: NS IV 1000 ML 1,000 ML IV SCH ×2 (17:45→20:00)
[2021-03-20 17:59] LABS: BASOPHILS % (AUTO) 0 % (0-10); EOSINOPHILS # (AUTO) 0.1 10^3/uL (0.0-0.3); EOSINOPHILS % (AUTO) 1 % (0-10); HEMATOCRIT 39 % (35-52); HEMOGLOBIN 12.8 g/dL (11.5-16.0); LYMPHOCYTES # (AUTO) 2.8 X 10^3 (1.0-4.0); LYMPHOCYTES % (AUTO) 28 % (12-44); MEAN CORPUSCULAR HEMOGLOBIN 27 pg (25-34); MEAN CORPUSCULAR HGB CONC 33 g/dL (32-36); MEAN CORPUSCULAR VOLUME 84 fL (80-99); MEAN PLATELET VOLUME 10.7 fL (9.0-12.2); MONOCYTES # (AUTO) 0.8 X 10^3 (0.0-1.0); MONOCYTES % (AUTO) 9 % (0-12); NEUTROPHILS # (AUTO) 6.1 X 10^3 (1.8-7.8); NEUTROPHILS % (AUTO) 62 % (42-75); PLATELET COUNT 281 10^3/uL (130-400); WHITE BLOOD COUNT 9.8 10^3/uL (4.3-11.0)
[2021-03-20 18:13] LABS: ALKALINE PHOSPHATASE 119 U/L (40-136); BILIRUBIN,TOTAL 0.3 MG/DL (0.1-1.0); BUN/CREATININE RATIO 14; CALCIUM 9.3 MG/DL (8.5-10.1); CARBON DIOXIDE 22 MMOL/L (21-32); CHLORIDE 100 MMOL/L (98-107); CREATININE SERUM 2.06 MG/DL (0.60-1.30); GFR ESTIMATED 26; GLUCOSE 89 MG/DL (70-105); POTASSIUM 4.9 MMOL/L (3.6-5.0); SODIUM 136 MMOL/L (135-145)
[2021-03-20 18:14] LABS: ALANINE AMINOTRANSFERASE 46 U/L (0-55); ALBUMIN 4.6 GM/DL (3.2-4.5); TOTAL PROTEIN 7.6 GM/DL (6.4-8.2)
[2021-03-20 18:21] LABS: BILIRUBIN,URINE NEGATIVE (NEGATIVE); COLOR,URINE YELLOW; GLUCOSE, URINE (UA) NEGATIVE (NEGATIVE); KETONES,URINE NEGATIVE (NEGATIVE); LEUKOCYTE ESTERASE ,URINE 2+ (NEGATIVE); NITRITE,URINE NEGATIVE (NEGATIVE); PH,URINE 5.5 (5-9); PROTEIN,URINE NEGATIVE (NEGATIVE)
[2021-03-20 18:26] LABS: BACTERIA,URINE TRACE /HPF; CLARITY,URINE SL CLOUDY; SQUAMOUS EPITHELIAL CELL,UR 25-50 /HPF; WBC,URINE 50-100 /HPF
[2021-03-20 22:20] VITALS: BP 131/62
== END 2021-03-20 22:24 | disposition short-term general hospital (02) ==
LOC: EDUNIT# 17:05 → ER FS 17:06
DX: N17.9 Acute kidney failure, unspecified (principal); I95.9 Hypotension, unspecified; E86.0 Dehydration; I10 Essential (primary) hypertension; J45.909 Unspecified asthma, uncomplicated; G43.909 Migraine, unspecified, not intractable, without status migrainosus; K21.9 Gastro-esophageal reflux disease without esophagitis; G89.29 Other chronic pain; M54.9 Dorsalgia, unspecified; F41.9 Anxiety disorder, unspecified; D64.9 Anemia, unspecified; Z79.1 Long term (current) use of non-steroidal anti-inflammatories (NSAID); Z79.891 Long term (current) use of opiate analgesic; Z79.899 Other long term (current) drug therapy
CPT/HCPCS: 36415; 80053; 81000; 83735; 85025; 87088

== ENCOUNTER 2023-02-20 13:47 | Emergency (ER) | payer BC ==
[~2023-02-20] VITALS: Ht 170 cm; Wt 80.0 kg
--- NOTE | 2023-02-20 13:55 | ED GI ---
General Chief Complaint: Abdominal/GI Problems Stated Complaint: LOW BP; GEN WEAKNESS History of Present Illness Date Seen by Provider: Feb 20, 2023 Time Seen by Provider: 13:52 Initial Comments 52 yr F with PMH of GI bleed in the past without finding out specific cause/ HTN, is here with c/o generalized weakness, abdominal cramping, and multiple episodes of severe bloody diarrhea since last night. Denies fever and chills, nausea and vomiting, chest pain, SOB, headache, neck stiffness, hematemasis. Pt had COVID the beginning of January with respiratory symptoms which have completely resolved since then. No known sick contacts or recent travel. Allergies and Home Medications Allergies Coded Allergies: No Known Drug Allergies (Unverified , 01/11/20) Patient Home Medication List Home Medication List Reviewed: Yes Alprazolam (Alprazolam) 1 Mg Tablet, 1-1.5 MG PO TID, (Reported) Entered as Reported by: LUCIA BASS on 01/08/20 1307 Cetirizine HCl (Cetirizine HCl) 10 Mg Tablet, 10 MG PO DAILY, (Reported) Entered as Reported by: LUCIA BASS on 01/08/20 1307 Diphenhydramine HCl (Benadryl) 25 Mg Capsule, 25-50 MG PO PRN, (Reported) Entered as Reported by: LUCIA BASS on 01/08/20 1307 Docusate Sodium (Dok) 100 Mg Capsule, 100 MG PO BID Prescribed by: MANOLO RIVERA on 01/13/20 0555 Gabapentin (Neurontin) 300 Mg Capsule, 300 MG PO HS, (Reported) Entered as Reported by: LUCIA BASS on 01/08/20 1307 Ibuprofen (Ibuprofen) 800 Mg Tablet, 800 MG PO Q8HR Prescribed by: MANOLO RIVERA on 01/13/20 0555 Iron,Carbonyl/Ascorbic Acid (Iron 100-Vitamin C Tablet) 1 Each Tablet, 1 EACH PO DAILY, (Reported) Entered as Reported by: LUCIA BASS on 01/08/20 1307 Lisinopril (Lisinopril) 40 Mg Tablet, 40 MG PO DAILY, (Reported) Entered as Reported by: LUCIA BASS on 01/08/20 1307 Metaxalone (Metaxalone) 800 Mg Tablet, 800 MG PO TID, (Reported) Entered as Reported by: LUCIA BASS on 01/08/20 1307 Metoprolol Tartrate (Metoprolol Tartrate) 50 Mg Tablet, 50 MG PO BID, (Reported) Entered as Reported by: LUCIA BASS on 01/08/20 1307 Metronidazole (Metronidazole) 500 Mg Tablet, 500 MG PO TID Prescribed by: MANOLO RIVERA on 01/13/20 0606 Oxycodone HCl/Acetaminophen (Percocet 5-325 mg Tablet) 1 Each Tablet, 1 TAB PO Q4H Prescribed by: MANOLO RIVERA on 01/13/20 0555 Pantoprazole Sodium (Pantoprazole Sodium) 40 Mg Tablet.dr, 40 MG PO DAILY, (Reported) Entered as Reported by: LUCIA BASS on 01/08/20 1307 Ropinirole HCl (Ropinirole HCl) 0.25 Mg Tablet, 0.25 MG PO HS, (Reported) Entered as Reported by: LUCIA BASS on 01/08/20 1307 Sumatriptan Succinate (Imitrex) 100 Mg Tablet, 100 MG PO PRN PRN for MIGRAINE, (Reported) Entered as Reported by: LUCIA BASS on 01/08/20 1307 Review of Systems Review of Systems Constitutional: see HPI, malaise EENTM: No Symptoms Reported Respiratory: No Symptoms Reported Cardiovascular: No Symptoms Reported Gastrointestinal: See HPI, Abdominal Pain, Diarrhea, Rectal Bleeding Genitourinary: No Symptoms Reported Musculoskeletal: no symptoms reported Skin: no symptoms reported Psychiatric/Neurological: No Symptoms Reported Endocrine: No Symptoms Reported Hematologic/Lymphatic: No Symptoms Reported Past Lbpwvgl-Bvdeyy-Xymbxx Hx Immunizations Up To Date Second COVID19 Vaccination Lukas: 08/14 Seasonal Allergies Seasonal Allergies: Yes Past Medical History Surgeries: Yes (GANGLION CYST, WISDOM TEETH) Gallbladder Respiratory: Yes ( CHILD) Asthma Currently Using CPAP: No Currently Using BIPAP: No Cardiac: Yes Hypertension, Palpitations Neurological: Yes Headaches /Migraines Female Reproductive Disorders: Menstrual Problems Sexually Transmitted Disease: No HIV/AIDS: No Genitourinary: Yes UTI-Chronic Gastrointestinal: Yes Gastroesophageal Reflux Musculoskeletal: Yes Chronic Back Pain Endocrine: No HEENT: Yes (GLASSES) Loss of Vision: Denies Hearing Impairment: Denies Cancer: No Psychosocial: Yes Anxiety Integumentary: Yes (DRY SKIN) Blood Disorders: Yes (ANEMIA) Adverse Reaction/Blood Tranf: No (N/A) Physical Exam Vital Signs Vital Signs - First Documented 02/20/23 13:56 Temp 36.8 Resp 69 B/P (MAP) 72/39 (50) Pulse Ox 95 O2 Delivery Room Air Capillary Refill : Height/Weight/BMI Height: '" Weight: lbs. oz. kg; 27.00 BMI Method: General Appearance: mild distress HEENT: normal ENT inspection Neck: non-tender, full range of motion Respiratory: lungs clear, normal breath sounds Cardiovascular: regular rate, rhythm Gastrointestinal: normal bowel sounds, soft, no organomegaly, tenderness (generalized but more in the lower half of the abdomen) Genital/Rectal: normal rectal exam, heme positive stool Extremities: normal range of motion Back: normal inspection, no CVA tenderness Neurologic/Psychiatric: carport erector II-XII nml as tested, no motor/sensory deficits, alert, normal mood/affect, oriented x 3 Skin: pallor Lymphatic: no adenopathy Focused Exam Lactate Level 02/20/23 13:50: Lactic Acid Level 2.20*H Lactic Acid Level Laboratory Tests Test 02/20/23 13:50 Lactic Acid Level 2.20 MMOL/L (0.50-2.00) *H Progress/Results/Core Measures Results/Orders Lab Results Laboratory Tests Test 02/20/23 13:50 Range/Units White Blood Count 16.8 H 4.3-11.0 10^3/uL Red Blood Count 3.85 3.80-5.11 10^6/uL Hemoglobin 11.3 L 11.5-16.0 g/dL Hematocrit 35 35-52 % Mean Corpuscular Volume 90 80-99 fL Mean Corpuscular Hemoglobin 29 25-34 pg Mean Corpuscular Hemoglobin Concent 33 32-36 g/dL Red Cell Distribution Width 13.6 10.0-14.5 % Platelet Count 252 130-400 10^3/uL Mean Platelet Volume 11.1 9.0-12.2 fL Immature Granulocyte % (Auto) 0 % Neutrophils (%) (Auto) 85 H 42-75 % Lymphocytes (%) (Auto) 8 L 12-44 % Monocytes (%) (Auto) 5 0-12 % Eosinophils (%) (Auto) 1 0-10 % Basophils (%) (Auto) 0 0-10 % Neutrophils # (Auto) 14.3 H 1.8-7.8 10^3/uL Lymphocytes # (Auto) 1.4 1.0-4.0 10^3/uL Monocytes # (Auto) 0.9 0.0-1.0 10^3/uL Eosinophils # (Auto) 0.1 0.0-0.3 10^3/uL Basophils # (Auto) 0.0 0.0-0.1 10^3/uL Immature Granulocyte # (Auto) 0.1 0.0-0.1 10^3/uL Neutrophils % (Manual) 75 % Lymphocytes % (Manual) 11 % Monocytes % (Manual) 5 % Eosinophils % (Manual) 0 % Basophils % (Manual) 0 % Band Neutrophils 9 % Platelet Estimate ADEQUATE Blood Morphology Comment NORMAL Sodium Level 140 135-145 MMOL/L Potassium Level 4.3 3.6-5.0 MMOL/L Chloride Level 104 98-107 MMOL/L Carbon Dioxide Level 22 21-32 MMOL/L Anion Gap 14 5-14 MMOL/L Blood Urea Nitrogen 17 7-18 MG/DL Creatinine 1.81 H 0.60-1.30 MG/DL Estimat Glomerular Filtration Rate 33 BUN/Creatinine Ratio 9 Glucose Level 148 H 70-105 MG/DL Lactic Acid Level 2.20 *H 0.50-2.00 MMOL/L Calcium Level 9.6 8.5-10.1 MG/DL Corrected Calcium 9.8 8.5-10.1 MG/DL Magnesium Level 1.6 1.6-2.4 MG/DL Total Bilirubin 0.8 0.1-1.0 MG/DL Aspartate Amino Transf (AST/SGOT) 84 H 5-34 U/L Alanine Aminotransferase (ALT/SGPT) 76 H 0-55 U/L Alkaline Phosphatase 177 H 40-136 U/L Troponin I < 0.30 <0.30 NG/ML Total Protein 6.4 6.4-8.2 GM/DL Albumin 3.8 3.2-4.5 GM/DL Lipase 14 8-78 U/L Salicylates Level 0.6 L 5.0-20.0 MG/DL Acetaminophen Level < 10 L 10-30 UG/ML My Orders Orders - AGUSTÍN,ELY L MD Acetaminophen (02/20/23 13:55) Cbc With Automated Diff (02/20/23 13:55) Comprehensive Metabolic Panel (02/20/23 13:55) Drug Screen Stat (Urine) (02/20/23 13:55) Lactic Acid Analyzer (02/20/23 13:55) Lipase (02/20/23 13:55) Magnesium (02/20/23 13:55) Salicylate (02/20/23 13:55) Ua Culture If Indicated (02/20/23 13:55) Troponin I Fs (02/20/23 13:55) Occult Blood Stool (02/20/23 13:56) Ed Iv/Invasive Line Start (02/20/23 13:56) Ns Iv 1000 Ml (Ns Iv 1000 Ml) (02/20/23 14:00) Pantoprazole Injection (Pantoprazole Inj (02/20/23 14:00) Ns (Ivpb) 100 Ml (S... W/Pantoprazole In (02/20/23 13:57) Chest 1 View Ap/Pa Only (02/20/23 13:57) Ct Abdomen/Pelvis W (02/20/23 13:57) Manual Differential (02/20/23 13:50) Iohexol Injection (Omnipaque 350 Mg/Ml 1 (02/20/23 14:30) Received Contrast (Hold Metformin- Contr (02/20/23 14:30) Ns (Ivpb) 100 Ml (Sodium Chloride 0.9% 1 (02/20/23 14:30) Ed Iv/Invasive Line Start (02/20/23 14:28) Ed Iv/Invasive Line Start (02/20/23 14:28) Ekg Tracing (02/20/23 14:28) Vital Signs Adult Sepsis Patie Q15M (02/20/23 14:28) Remove Rings In Anticipation O (02/20/23 14:28) Ns Iv 1000 Ml (Ns Iv 1000 Ml) (02/20/23 14:30) Piperacillin/Tazobactam (Piperacillin/Ta (02/20/23 14:30) Medications Given in ED Current Medications Medications Dose Ordered Sig/Nichole Route Start Time Stop Time Status Last Admin Dose Admin Iohexol 100 ml ONCE ONCE IV 02/20/23 14:30 02/20/23 14:31 DC 02/20/23 14:26 80 ML Pantoprazole 80 mg ONCE ONCE IV 02/20/23 14:00 02/20/23 14:01 DC 02/20/23 14:16 80 MG Sodium Chloride 100 ml ONCE ONCE IV 02/20/23 14:30 02/20/23 14:31 DC 02/20/23 14:27 100 ML Vital Signs/I&O 02/20/23 13:56 Temp 36.8 Resp 69 B/P (MAP) 72/39 (50) Pulse Ox 95 O2 Delivery Room Air Progress Progress Note : Progress Note 1. LOWER GI BLEED DUE TO INFLAMMATORY vs INFECTIOUS COLITIS WITH SEPSIS & DEHYDRATION: - CXR:unremarkable - CT ABD: Findings concerning for infectious or inflammatory colitis. - CBC: WBC is elevated at 16.8 with a left shift, Hb is stable at 11.3 - Lactic acid level is elevated at 2.20 and s. creatinine is 1.81 - AST/ALT/ Alk Phos is elevated - UA: contaminated sample with bloody stool, will need repeat UA - FOB: positive - Blood cultures sent - COVID test POSITIVE - Stool studies ( stool culture/ c. diff/ O&P/ Giardia) sent to lab, gross blood present in stool - NS IVF bolus x2 in ER - Protonix bolus and drip STAT - Zosyn 4.5gm iv STAT - Pt has been hypotensive in the ER but BP improved on fluids. Concern for sepsis. Repeat CBC ordered - Pt will need admission for GI consult, and pt preference is to be admitted to [facility] since her PCP and GI specialist are there. Discussed with [facility] transfer nurse and ER physician, Dr Perry and will transfer ER to ER as per [facility] protocol. - [facility] at [place] is a stand alone ER, and [facility] in [place] does not have GI consult. [facility] does not have EMS/ ambulance availability for transfers for the next few hours, and we will need to have pt transferred via flight due to this reason. Initial ECG Impression Date: Feb 20, 2023 Initial ECG Impression Time: 14:35 Initial ECG Rate: 67 Initial ECG Rhythm: Normal Sinus Initial ECG Intervals: Normal Initial ECG Impression: Normal Initial ECG Comparisson: No Previous ECG Available Diagnostic Imaging Diagonstic Imaging: Xray, CT Plain Films/CT/US/NM/MRI: chest, abdomen Comments [facility], [place] NAME: JERRY FELIX MED REC#: [id number] PT STATUS: REG ER : 1970 PHYSICIAN: ELY RANDOLPH MD ADMIT DATE: 02/20/23/ER FS Signed Date of Exam:02/20/23 CT ABDOMEN/PELVIS W PROCEDURE: CT abdomen and pelvis with contrast. TECHNIQUE: Multiple contiguous axial images were obtained through the abdomen and pelvis after administration of intravenous contrast. Auto Exposure Controls were utilized during the CT exam to meet ALARA standards for radiation dose reduction. All CT scans use one or more of the following dose optimizing techniques: automated exposure control, MA and/or KvP adjustment based on patient size and exam type or iterative reconstruction. INDICATION: Bloody stool. COMPARISON: None. FINDINGS: Diffuse wall thickening throughout the sigmoid colon and descending colon as well as the majority of the transverse colon. Normal appendix. No fluid collections, free air, or ascites. Small bowel is nondilated. The liver is normal. The spleen is normal. The gallbladder is postsurgical. The kidneys are normal. No nephrolithiasis or hydronephrosis. The aortic atherosclerosis without aneurysm. The urinary bladder is normal. The osseous structures demonstrate no lytic or sclerotic bone lesion. IMPRESSION: Findings concerning for infectious or inflammatory colitis. Dictated by: Dictated on workstation # [id number] Dict: 02/20/23 1434 Trans: 02/20/23 1436 [facility] [id number] Interpreted by: SHAQ RACHEL DO Electronically signed by: SHAQ RACHEL DO 02/20/23 1436 [facility] [place], [place] NAME: JERRY FELIX [facility] REC#: [id number] PT STATUS: REG ER : 1970 PHYSICIAN: ELY RANDOLPH MD ADMIT DATE: 02/20/23/ER FS Draft Date of Exam:02/20/23 CHEST 1 VIEW AP/PA ONLY INDICATION: Syncope. FINDINGS: Heart and lungs appeared normal. No failure, effusion, or pneumothorax. IMPRESSION: Unremarkable frontal chest. Dictated on workstation # [id number] Dict: 02/20/23 1452 Trans: 02/20/23 1453 [id number] Interpreted by: NAHOMI NOONAN Electronically signed by: Departure Impression Primary Impression: Lower GI bleed Additional Impressions: Sepsis Qualified Codes: A41.9 - Sepsis, unspecified organism Generalized weakness Dehydration Colitis presumed infectious Lab test positive for detection of COVID-19 virus Disposition: XFER SHT-TRM HOSP Condition: Stable Admissions Decision to Admit/Date: Feb 20, 2023 Time/Decision to Admit Time: 14:20 Transfer Transfer Reason: Exceeds level of care (and also pt preference to go to [facility]) Time Spoke to Accepting Phy: 15:32 Transfer Progress Notes Discussed with Dr. Perry, ER physician at [facility], and accepted for transfer from ER to ER Transfer Facility: [facility] Method of Transfer: Air Departure-Patient Inst. Referrals: SHAHLA MEDEIROS APRN (PCP) Primary Care Physician [facility] (Family) Primary Care Physician ELY RANDOLPH MD Feb 20, 2023 13:54
[2023-02-20] MEDS ORDERED: PANTOPRAZOLE INJECTION 200 MG in NS (IVPB) 100 ML 100 ML IV STA (13:57)
[2023-02-20] MEDS ORDERED: PANTOPRAZOLE INJECTION 40 MG VIAL IV ONE (14:00)
[2023-02-20] MEDS ORDERED: NS IV 1000 ML 1,000 ML IV SCH ×2 (14:00→14:30)
[2023-02-20 14:04] LABS: BASOPHILS % (AUTO) 0 % (0-10); EOSINOPHILS # (AUTO) 0.1 10^3/uL (0.0-0.3); EOSINOPHILS % (AUTO) 1 % (0-10); HEMATOCRIT 35 % (35-52); HEMOGLOBIN 11.3 g/dL (11.5-16.0); LYMPHOCYTES # (AUTO) 1.4 10^3/uL (1.0-4.0); LYMPHOCYTES % (AUTO) 8 % (12-44); MEAN CORPUSCULAR HEMOGLOBIN 29 pg (25-34); MEAN CORPUSCULAR HGB CONC 33 g/dL (32-36); MEAN CORPUSCULAR VOLUME 90 fL (80-99); MEAN PLATELET VOLUME 11.1 fL (9.0-12.2); MONOCYTES # (AUTO) 0.9 10^3/uL (0.0-1.0); MONOCYTES % (AUTO) 5 % (0-12); NEUTROPHILS # (AUTO) 14.3 10^3/uL (1.8-7.8); NEUTROPHILS % (AUTO) 85 % (42-75); PLATELET COUNT 252 10^3/uL (130-400); WHITE BLOOD COUNT 16.8 10^3/uL (4.3-11.0)
[2023-02-20] MEDS ORDERED: PIPERACILLIN/Tazobactam 4.5 GM in NS (IVPB) 100 ML 100 ML IV ONE (14:30)
[2023-02-20] MEDS ORDERED: NS 100 ML (IVPB) BAG IV ONE (14:30)
[2023-02-20] MEDS ORDERED: IOHEXOL 350 MG/ML 100 ML (OMNIPAQUE 350) VIAL IV ONE (14:30)
[2023-02-20] MEDS ORDERED: HOLD METFORMIN - RECEIVED CONTRAST 20 ML VIAL IV SCH (14:30)
[2023-02-20 14:33] LABS: CARBON DIOXIDE 22 MMOL/L (21-32); CHLORIDE 104 MMOL/L (98-107); POTASSIUM 4.3 MMOL/L (3.6-5.0); SODIUM 140 MMOL/L (135-145)
[2023-02-20 14:34] LABS: ALANINE AMINOTRANSFERASE 76 U/L (0-55); ALBUMIN 3.8 GM/DL (3.2-4.5); ALKALINE PHOSPHATASE 177 U/L (40-136); BILIRUBIN,TOTAL 0.8 MG/DL (0.1-1.0); BUN/CREATININE RATIO 9; CALCIUM 9.6 MG/DL (8.5-10.1); CREATININE SERUM 1.81 MG/DL (0.60-1.30); GFR ESTIMATED 33; GLUCOSE 148 MG/DL (70-105); LIPASE 14 U/L (8-78); MAGNESIUM 1.6 MG/DL (1.6-2.4); SALICYLATE 0.6 MG/DL (5.0-20.0); TOTAL PROTEIN 6.4 GM/DL (6.4-8.2)
[2023-02-20 14:35] LABS: ACETAMINOPHEN < 10 UG/ML (10-30)
--- NOTE | 2023-02-20 14:37 | Diagnostic Imaging Report ---
PROCEDURE: CT abdomen and pelvis with contrast. TECHNIQUE: Multiple contiguous axial images were obtained through the abdomen and pelvis after administration of intravenous contrast. Auto Exposure Controls were utilized during the CT exam to meet ALARA standards for radiation dose reduction. All CT scans use one or more of the following dose optimizing techniques: automated exposure control, MA and/or KvP adjustment based on patient size and exam type or iterative reconstruction. INDICATION: Bloody stool. COMPARISON: None. FINDINGS: Diffuse wall thickening throughout the sigmoid colon and descending colon as well as the majority of the transverse colon. Normal appendix. No fluid collections, free air, or ascites. Small bowel is nondilated. The liver is normal. The spleen is normal. The gallbladder is postsurgical. The kidneys are normal. No nephrolithiasis or hydronephrosis. The aortic atherosclerosis without aneurysm. The urinary bladder is normal. The osseous structures demonstrate no lytic or sclerotic bone lesion. IMPRESSION: Findings concerning for infectious or inflammatory colitis. Dictated by: Dictated on workstation # [id number]
[2023-02-20 14:43] LABS: BAND NEUTROPHILS 9 %; BASOPHILS % (MANUAL) 0 %; EOSINOPHILS % (MANUAL) 0 %; LYMPHOCYTES % (MANUAL) 11 %; MONOCYTES % (MANUAL) 5 %; NEUTROPHILS % (MANUAL) 75 %; PLATELET ESTIMATE ADEQUATE; RBC MORPH NORMAL
--- NOTE | 2023-02-20 14:54 | Diagnostic Imaging Report ---
INDICATION: Syncope. FINDINGS: Heart and lungs appeared normal. No failure, effusion, or pneumothorax. IMPRESSION: Unremarkable frontal chest. Dictated by: Dictated on workstation # [id number]
[2023-02-20 15:25] VITALS: BP 93/44
[2023-02-20 15:45] LABS: COLOR,URINE STRAW
[2023-02-20 15:46] LABS: BACTERIA,URINE TRACE /HPF; BILIRUBIN,URINE NEGATIVE (NEGATIVE); CLARITY,URINE CLEAR; GLUCOSE, URINE (UA) NEGATIVE (NEGATIVE); KETONES,URINE NEGATIVE (NEGATIVE); LEUKOCYTE ESTERASE ,URINE NEGATIVE (NEGATIVE); NITRITE,URINE NEGATIVE (NEGATIVE); PROTEIN,URINE NEGATIVE (NEGATIVE); SQUAMOUS EPITHELIAL CELL,UR >50 /HPF; WBC,URINE RARE /HPF
[2023-02-20 16:12] LABS: BASOPHILS % (AUTO) 0 % (0-10); EOSINOPHILS # (AUTO) 0.1 10^3/uL (0.0-0.3); EOSINOPHILS % (AUTO) 1 % (0-10); HEMATOCRIT 30 % (35-52); HEMOGLOBIN 9.6 g/dL (11.5-16.0); LYMPHOCYTES % (AUTO) 8 % (12-44); MEAN CORPUSCULAR HEMOGLOBIN 29 pg (25-34); MEAN CORPUSCULAR HGB CONC 33 g/dL (32-36); MEAN CORPUSCULAR VOLUME 89 fL (80-99); MEAN PLATELET VOLUME 10.8 fL (9.0-12.2); MONOCYTES # (AUTO) 0.8 10^3/uL (0.0-1.0); MONOCYTES % (AUTO) 7 % (0-12); NEUTROPHILS # (AUTO) 10.4 10^3/uL (1.8-7.8); NEUTROPHILS % (AUTO) 84 % (42-75); PLATELET COUNT 186 10^3/uL (130-400); WHITE BLOOD COUNT 12.4 10^3/uL (4.3-11.0)
[2023-02-20 16:17] LABS: AMPHETAMINE SCREEN, URINE NEGATIVE (NEGATIVE); BARBITURATE SCREEN URINE NEGATIVE (NEGATIVE); BENZODIAZEPINES SCREEN URINE POSITIVE (NEGATIVE); CANNABINOID SCREEN, URINE NEGATIVE (NEGATIVE); COCAINE SCREEN URINE NEGATIVE (NEGATIVE); METHADONE STAT NEGATIVE (NEGATIVE); OPIATE SCREEN URINE POSITIVE (NEGATIVE); OXYCODONE STAT NEGATIVE (NEGATIVE); PROPOXYPHENE STAT NEGATIVE (NEGATIVE); TRICYCLIC ANTIDEPRESSANTS SCRE NEGATIVE (NEGATIVE)
== END 2023-02-20 16:10 | disposition short-term general hospital (02) ==
LOC: EDUNIT# 13:47 → ER FS 13:48
DX: K92.1 Melena (principal); A41.9 Sepsis, unspecified organism; E86.0 Dehydration; Z86.16 Personal history of COVID-19
CPT/HCPCS: 36415; 71045; 74177; 80053; 80306; 81000; 82274; 83605; 83690; 83735; 84484; 85007; 85025; 85027; 87015; 87040; 87045; 87046; 87324; 87328; 87329; 87449; 87636; 87899; 93005; 96374; 96375; 99284; G0480 ×2; 80329; Q9967